=== PATIENT | female | born 1955 | race Hispanic/Latino ===

== ENCOUNTER 2021-05-26 10:47 | Emergency (ER) | payer SELFPAY ==
[2021-05-26] MEDS ORDERED: fentaNYL 100 MCG/2 ML INJ IV ONE (11:29)
[2021-05-26] MEDS ORDERED: ONDANSETRON 4 MG/2 ML INJ IV ONE (11:29)
[2021-05-26] MEDS ORDERED: KETOROLAC 30 MG/1 ML INJ IV ONE (11:29)
[2021-05-26] MEDS ORDERED: SODIUM CHLORIDE 0.9% 1000 ML 1,000 ML IV ONE (11:29)
--- NOTE | 2021-05-26 11:31 | Emergency Department Report ---
ED Abdominal Pain HPI - General Chief Complaint: Abdominal Pain Stated Complaint: ABDOMINAL PAIN Time Seen by Provider: 05/26/21 11:24 Source: patient Mode of arrival: Wheelchair Limitations: No Limitations - History of Present Illness Initial Comments: Patient presents with a 3 to 4-day history of worsening abdominal pain. She is describing a sharp and cramping pain in the epigastric area. The pain does not radiate or migrate. It is progressively worsened. The pain is much worse today. The pain has been constant. She has had pain like this before when she has had problems with her gallbladder. She had problems with her gallbladder years ago, but never had surgery to address the problem. Patient denies any history of trauma. She has no fevers or chills. There is no hematemesis or coffee-ground emesis. She reports nausea without vomiting. There is no history of recent travel or trauma. She is taken [id number] medication without symptomatic improvement. - Related Data Previous Rx's Medication Instructions Recorded Last Taken Type HYDROcodone/APAP 5-325 [[place] 1 - 2 each PO Q6HR PRN #20 tablet 01/10/13 Unknown Rx 5/325 mg] Sulfamethoxazole/Trimethoprim 1 each PO BID #14 tablet 01/10/13 Unknown Rx [Bactrim DS] lisinopriL [Zestril TAB] 20 mg PO QDAY #30 tablet 01/10/13 Unknown Rx metFORMIN [Glucophage] 500 mg PO BID #60 tablet 01/10/13 Unknown Rx Ibuprofen [Motrin] 800 mg PO Q8HR PRN #20 tablet 05/26/21 Unknown Rx Metoclopramide [Reglan] 10 mg PO ACHS PRN #30 tablet 05/26/21 Unknown Rx Allergies Allergy/AdvReac Type Severity Reaction Status Date / Time Penicillins Allergy Unknown Verified 01/09/13 16:25 ED Review of Systems ROS: Stated complaint: ABDOMINAL PAIN Other details as noted in HPI Comment: All other systems reviewed and negative Constitutional: denies: fever Eyes: denies: vision change ENT: denies: throat pain Respiratory: denies: cough Cardiovascular: denies: chest pain Endocrine: denies: unexplained weight loss Gastrointestinal: as per HPI Genitourinary: denies: dysuria Musculoskeletal: denies: back pain Skin: denies: rash Neurological: denies: headache Hematological/Lymphatic: denies: easy bruising ED Past Medical Hx - Past Medical History Hx Hypertension: Yes (noncompliant) Hx Diabetes: Yes (noncompliant) Additional medical history: spontaneous pneumothorax. high cholesterol - Surgical History Additional Surgical History: lung surgery. tubal ligation. tonsillectomy - Family History Family history: hypertension - Social History Smoking Status: Current Every Day Smoker (We discussed tobacco cessation) Substance Use Type: Alcohol, Non Opiate Pain, Prescribed - Medications Home Medications: Home Medications Medication Instructions Recorded Confirmed Last Taken Type HYDROcodone/APAP 5-325 [[place] 1 - 2 each PO Q6HR PRN #20 tablet 01/10/13 Unknown Rx 5/325 mg] Sulfamethoxazole/Trimethoprim 1 each PO BID #14 tablet 01/10/13 Unknown Rx [Bactrim DS] lisinopriL [Zestril TAB] 20 mg PO QDAY #30 tablet 01/10/13 Unknown Rx metFORMIN [Glucophage] 500 mg PO BID #60 tablet 01/10/13 Unknown Rx Ibuprofen [Motrin] 800 mg PO Q8HR PRN #20 tablet 05/26/21 Unknown Rx Metoclopramide [Reglan] 10 mg PO ACHS PRN #30 tablet 05/26/21 Unknown Rx ED Physical Exam - General Limitations: No Limitations, Other (Pulse ox noted and normal) General appearance: alert, in no apparent distress - Head Head exam: Present: atraumatic, normocephalic - Eye Eye exam: Present: normal appearance, PERRL, EOMI. Absent: scleral icterus - ENT ENT exam: Present: normal orophraynx, normal external ear exam - Neck Neck exam: Present: normal inspection. Absent: meningismus - Respiratory Respiratory exam: Present: normal lung sounds bilaterally. Absent: respiratory distress - Cardiovascular Cardiovascular Exam: Present: regular rate, normal rhythm - GI/Abdominal GI/Abdominal exam: Present: soft, tenderness (Epigastric). Absent: guarding, rebound - Extremities Exam Extremities exam: Present: normal capillary refill. Absent: calf tenderness - Back Exam Back exam: Absent: CVA tenderness (R), CVA tenderness (L) - Neurological Exam Neurological exam: Present: alert, oriented X3, CN II-XII intact, normal gait. Absent: motor sensory deficit - Psychiatric Psychiatric exam: Present: normal affect, normal mood - Skin Skin exam: Present: warm, dry ED Course Vital Signs 05/26/21 05/26/21 05/26/21 10:59 11:37 11:38 Temperature 97.9 F Pulse Rate 104 H Respiratory 16 18 18 Rate Blood Pressure 174/113 [Left] O2 Sat by Pulse 99 97 Oximetry 05/26/21 11:46 Temperature Pulse Rate 102 H Respiratory 26 H Rate Blood Pressure [Left] O2 Sat by Pulse Oximetry - Reevaluation(s) Reevaluation #1: 05/26/21 11:31 IV labs ordered. Old records reviewed. Reevaluation #2: 05/26/21 12:43 Labs were reviewed. Pain is improved. There is no right upper quadrant tenderness or rebound. Patient was discharged. ED Medical Decision Making - Lab Data Result diagrams: 05/26/21 11:41 05/26/21 11:41 Rhythm strip: Sinus tachycardia without ectopy. Monitor observe 10 seconds. - Medical Decision Making Patient presents with upper abdominal pain and known gallbladder disease. She does not have evidence of acute cholecystitis. She does not have intractable pain. She does not appear to be septic or toxic. There is no evidence of transaminitis. Bilirubin is normal. I do not believe this represents any obstructive pattern. Patient was referred to surgery for outpatient follow-up. She was instructed to have a bland diet and avoid fatty foods. She can return for problems or concerns. Certainly, there is no pulsatile mass to suggest AAA. She has no distention or tympany to suggest bowel obstruction. Critical Care Time: No Critical care attestation.: If time is entered above; I have spent that time in minutes in the direct care of this critically ill patient, excluding procedure time. ED Disposition Clinical Impression: Acute epigastric pain Disposition: HOME / SELF CARE / HOMELESS Is pt being admited?: No Condition: Stable Instructions: Abdominal Pain (ED), Abdominal Pain, Adult, Mxyq-no-[id number] Additional Instructions: Have a bland diet. Avoid fatty foods and greasy foods. Drink plenty of water. See the surgeon and discuss having cholecystectomy. Prescriptions: Ibuprofen [Motrin] 800 mg PO Q8HR PRN #20 tablet PRN Reason: Pain , Severe (7-10) Metoclopramide [Reglan] 10 mg PO ACHS PRN #30 tablet PRN Reason: Nausea Referrals: SWATHI ALBERT MD [Primary Care Provider] - 3-5 Days AYDEE PACK MD [Staff Physician] - 3-5 Days SANDRA POE MD [Staff Physician] - 3-5 Days
[2021-05-26 12:16] LABS: Basophils # (Auto) 0.1 K/mm3 (0.0-0.1); Basophils % (Auto) 0.7 % (0.0-1.8); Eosinophils # (Auto) 0.2 K/mm3 (0.0-0.4); Eosinophils % (Auto) 1.7 % (0.0-4.3); Hematocrit 45.1 % (30.3-42.9); Hemoglobin 14.8 gm/dl (10.1-14.3); Lymphocytes # (Auto) 1.8 K/mm3 (1.2-5.4); Lymphocytes % (Auto) 18.6 % (13.4-35.0); Mean Corpuscular HGB Conc 33 % (30-34); Mean Corpuscular Volume 89 fl (79-97); Monocytes # (Auto) 0.6 K/mm3 (0.0-0.8); Monocytes % (Auto) 5.8 % (0.0-7.3); Platelet Count 320 K/mm3 (140-440); Red Blood Count 5.04 M/mm3 (3.65-5.03); Red Cell Distribution Width 13.5 % (13.2-15.2)
[2021-05-26 12:29] LABS: Alanine Aminotransferase 8 units/L (7-56); Albumin 4.7 g/dL (3.9-5); BUN/Creatinine Ratio 25; Blood Urea Nitrogen 30 mg/dL (7-17); Calcium 9.6 mg/dL (8.4-10.2); Hemolysis Index 26
[2021-05-26 12:30] LABS: Bilirubin,Direct < 0.2 mg/dL (0-0.2)
[2021-05-26] MEDS ORDERED: MORPHINE 4 MG/1 ML INJ IV ONE (12:49)
[2021-05-26 13:52] VITALS: BP 194/94
== END 2021-05-26 13:52 | disposition home or self-care (01) ==
LOC: ED 10:47
DX: R10.13 Epigastric pain (principal); Z88.0 Allergy status to penicillin; F17.200 Nicotine dependence, unspecified, uncomplicated; F10.20 Alcohol dependence, uncomplicated; I10 Essential (primary) hypertension; E11.9 Type 2 diabetes mellitus without complications
CPT/HCPCS: 36415; 80048; 80076; 83690; 85025; 96361; 96374; 96375; 99283; J1885; J2270; J2405; J3010; J7030; Q0162

== ENCOUNTER 2021-06-02 21:02 | Inpatient (IN) | payer MEDICARE ==
[2021-06-02] MEDS ORDERED: ONDANSETRON 4 MG/2 ML INJ IV ONE (22:50)
[2021-06-02] MEDS ORDERED: MORPHINE 4 MG/1 ML INJ IV ONE (22:50)
[2021-06-02] MEDS ORDERED: SODIUM CHLORIDE 0.9% 1000 ML 1,000 ML IV ONE (22:50)
--- NOTE | 2021-06-02 22:56 | Emergency Department Report ---
ED Abdominal Pain HPI - General Chief Complaint: Abdominal Pain Stated Complaint: GALLBLADDER ISSUES Time Seen by Provider: 06/02/21 22:41 Source: patient, family Mode of arrival: Wheelchair Limitations: No Limitations - History of Present Illness Initial Comments: Patient is 65-year-old female with history of hypertension and diabetes. Patient presented to the ER complaining of right upper quadrant abdominal pain and epigastric pain for the last 7 days. Patient was seen here on May 26 and was told that she has issues with her gallbladder and advised to follow-up with primary care physician for further management and refill. Patient stated that her symptoms getting worse since then. She is complaining of chills but no fever. She also reported nausea and vomiting. Patient denied any chest pain or shortness of breath. MD Complaint: abdominal pain -: days(s) Location: RUQ, epigastric Radiation: none Migration to: no migration Severity scale (0 -10): 3 Associated Symptoms: nausea, vomiting. denies: diarrhea, chills, constipation, dysuria, hematemesis - Related Data Previous Rx's Medication Instructions Recorded Last Taken Type HYDROcodone/APAP 5-325 [[place] 1 - 2 each PO Q6HR PRN #20 tablet 01/10/13 Unknown Rx 5/325 mg] Sulfamethoxazole/Trimethoprim 1 each PO BID #14 tablet 01/10/13 Unknown Rx [Bactrim DS] lisinopriL [Zestril TAB] 20 mg PO QDAY #30 tablet 01/10/13 Unknown Rx metFORMIN [Glucophage] 500 mg PO BID #60 tablet 01/10/13 Unknown Rx Ibuprofen [Motrin] 800 mg PO Q8HR PRN #20 tablet 05/26/21 Unknown Rx Metoclopramide [Reglan] 10 mg PO ACHS PRN #30 tablet 05/26/21 Unknown Rx Allergies Allergy/AdvReac Type Severity Reaction Status Date / Time Penicillins Allergy Unknown Verified 01/09/13 16:25 ED Review of Systems ROS: Stated complaint: GALLBLADDER ISSUES Other details as noted in HPI Comment: All other systems reviewed and negative Constitutional: chills. denies: fever Respiratory: denies: cough, shortness of breath, SOB with exertion, SOB at rest Cardiovascular: denies: chest pain, palpitations Gastrointestinal: abdominal pain, nausea, vomiting. denies: diarrhea, constipation, hematemesis, melena, hematochezia ED Past Medical Hx - Past Medical History Previous Medical History?: Yes Hx Hypertension: Yes (noncompliant) Hx Diabetes: Yes (noncompliant) Additional medical history: spontaneous pneumothorax. high cholesterol - Surgical History Past Surgical History?: Yes Additional Surgical History: lung surgery. tubal ligation. tonsillectomy. Left Knee Replacement - Social History Smoking Status: Current Every Day Smoker (We discussed tobacco cessation) Substance Use Type: Alcohol, Non Opiate Pain, Prescribed - Medications Home Medications: Home Medications Medication Instructions Recorded Confirmed Last Taken Type HYDROcodone/APAP 5-325 [[place] 1 - 2 each PO Q6HR PRN #20 tablet 01/10/13 Unknown Rx 5/325 mg] Sulfamethoxazole/Trimethoprim 1 each PO BID #14 tablet 01/10/13 Unknown Rx [Bactrim DS] lisinopriL [Zestril TAB] 20 mg PO QDAY #30 tablet 01/10/13 Unknown Rx metFORMIN [Glucophage] 500 mg PO BID #60 tablet 01/10/13 Unknown Rx Ibuprofen [Motrin] 800 mg PO Q8HR PRN #20 tablet 05/26/21 Unknown Rx Metoclopramide [Reglan] 10 mg PO ACHS PRN #30 tablet 05/26/21 Unknown Rx ED Physical Exam - General Limitations: No Limitations General appearance: alert, in no apparent distress - Head Head exam: Present: atraumatic, normocephalic, normal inspection - Eye Eye exam: Present: normal appearance - ENT ENT exam: Present: mucous membranes dry - Neck Neck exam: Present: normal inspection, full ROM. Absent: tenderness, meningismus - Respiratory Respiratory exam: Present: normal lung sounds bilaterally - Cardiovascular Cardiovascular Exam: Present: regular rate, normal rhythm, normal heart sounds - GI/Abdominal GI/Abdominal exam: Present: soft, tenderness, normal bowel sounds. Absent: distended, guarding, rebound, rigid, organomegaly, mass, bruit, pulsatile mass, hernia - Extremities Exam Extremities exam: Present: normal inspection, full ROM, normal capillary refill. Absent: tenderness - Back Exam Back exam: Present: normal inspection, full ROM. Absent: CVA tenderness (R), CVA tenderness (L) - Neurological Exam Neurological exam: Present: alert, oriented X3, CN II-XII intact, normal gait, reflexes normal. Absent: motor sensory deficit - Psychiatric Psychiatric exam: Present: normal mood - Skin Skin exam: Present: warm, intact, normal color ED Course Vital Signs 06/02/21 06/02/21 06/03/21 21:13 23:31 00:42 Temperature 97.9 F Pulse Rate 90 103 H Respiratory 18 20 22 Rate Blood Pressure 127/69 180/80 [Right] O2 Sat by Pulse 97 98 Oximetry 06/03/21 02:01 Temperature Pulse Rate Respiratory Rate Blood Pressure [Right] O2 Sat by Pulse 98 Oximetry ED Medical Decision Making - Lab Data Result diagrams: 06/02/21 22:59 06/02/21 22:59 - Radiology Data Radiology results: report reviewed - Medical Decision Making Patient is 65-year-old female with history of hypertension and diabetes. Patient presented to the ER complaining of right upper quadrant abdominal pain and epigastric pain for the last 7 days. Patient was seen here on May 26 and was told that she has issues with her gallbladder and advised to follow-up with primary care physician for further management and refill. Patient stated that her symptoms getting worse since then. She is complaining of chills but no fever. She also reported nausea and vomiting. Patient denied any chest pain or shortness of breath. Patient received normal saline, morphine, Zofran and Protonix. Labs reviewed and showed a leukocytosis of 35,000. Creatinine is 2.[address] abdomen and pelvis showed evidence of gastric outlet obstruction most likely secondary to duodenitis. I discussed the patient with Dr. Kike Jimenez, manager post on-call and he advised to put an NG tube and he will see the patient in the morning for further management. I discussed the patient with Dr. Ramsey, he agreed to admit the patient to medical service for further management. Critical Care Time: Yes Critical care time in (mins) excluding proc time.: 35 Critical care attestation.: If time is entered above; I have spent that time in minutes in the direct care of this critically ill patient, excluding procedure time. ED Disposition Clinical Impression: Acute abdominal pain, Gastric outlet obstruction, Acute nausea with nonbilious vomiting, Duodenitis Disposition: ADMITTED INPATIENT Is pt being admited?: Yes Condition: Stable Instructions: Abdominal Pain (ED)
[2021-06-02 23:41] LABS: Mean Corpuscular HGB Conc 37 % (30-34); Mean Corpuscular Volume 86 fl (79-97); Platelet Count 446 K/mm3 (140-440)
[2021-06-02 23:44] LABS: Hematocrit 31.9 % (30.3-42.9); Hemoglobin 11.7 gm/dl (10.1-14.3)
[2021-06-02 23:45] LABS: Alanine Aminotransferase 7 units/L (7-56); Albumin 4.2 g/dL (3.9-5); BUN/Creatinine Ratio 28; Blood Urea Nitrogen 69 mg/dL (7-17); Calcium 9.3 mg/dL (8.4-10.2); Hemolysis Index 1
[2021-06-03 00:33] LABS: Bilirubin,Direct < 0.2 mg/dL (0-0.2)
[2021-06-03] MEDS: metroNIDAZOLE/NS 500 MG/100 ML 500 MG/100 ML BAG IV ONE ×2 (00:39→21:55)
[2021-06-03] MEDS ORDERED: SODIUM CHLORIDE 0.9% 1000 ML 1,000 ML IV ONE ×2 (01:08→01:14)
[2021-06-03 01:47] LABS: Basophils % (Manual) 0 % (0.0-1.8); Eosinophils % (Manual) 0 % (0.0-4.3); Platelet Estimate Consistent w Auto; RBC Morphology Normal; Total Cells Counted 100
--- NOTE | 2021-06-03 02:01 | Cat Scan Report ---
CT ABDOMEN AND PELVIS WITHOUT CONTRAST INDICATION / CLINICAL INFORMATION: Patient complains of abdominal pain. TECHNIQUE: Axial CT images were obtained through the abdomen and pelvis without IV contrast. All CT scans at this location are performed using CT dose reduction for ALARA by means of automated exposure control. COMPARISON: CT abdomen and pelvis 08/10/2010 FINDINGS: LOWER CHEST: Bronchial thickening suggested within left lower lobe involving subsegmental bronchi. Mi nimally thickened septal lines nonspecific in appearance. Small dependent pleural effusions bilateral ly. Left-sided effusion slightly larger than right. LIVER: No significant abnormality. GALLBLADDER: Numerous cholesterol gallstones. No wall thickening. BILE DUCTS: No significant abnormality. SPLEEN: No significant abnormality. PANCREAS: No significant abnormality. ADRENALS: No significant abnormality. RIGHT KIDNEY / URETER: 2.1 cm cyst posterior medial right kidney slightly larger than the comparison study. LEFT KIDNEY / URETER: No significant abnormality. STOMACH / DUODENUM / SMALL BOWEL: The stomach is grossly distended and contains a large amount of flu id and/or food material. The distal gastric antrum and pylorus are thickened with additional thickeni ng of the first and second portion of the duodenum. Mild fat stranding additionally is noted on the s erosal surfaces of the second portion of the duodenum. Some areas of irregular wall thickening additi onally present. COLON: No significant abnormality. APPENDIX: No significant abnormality. PERITONEUM: No free air or free fluid are present within the abdomen or pelvis. LYMPH NODES: Borderline to minimally enlarged ramos hepatic lymph nodes are present with additional s mall lymph nodes adjacent to lateral margin second portion of the duodenum. AORTA / ARTERIES: Moderate atherosclerotic calcification without acute abnormality. IVC / VEINS: No significant abnormality. URINARY BLADDER: No significant abnormality. REPRODUCTIVE ORGANS: No significant abnormality. ADDITIONAL ABDOMINAL/PELVIC FINDINGS: None. SKELETAL SYSTEM: No significant abnormality. IMPRESSION: 1. The appearance of the stomach and duodenum suggests gastric outlet obstruction possibly from duode nal ulcer or other acute inflammatory process of the duodenum. No perforation demonstrated. Given the irregularity of the duodenal wall, neoplasm not entirely excluded. 2. Cholelithiasis without imaging features to support cholecystitis. 3. Small dependent pleural effusions larger within the left chest. 4. Areas of bronchial wall thickening in thickened septal lines left lower lobe nonspecific could ref lect component of bronchitis or sequela of aspiration. Signer Name: Liu Urban II, MD Signed: 06/03/2021 1:56 AM Workstation Name: [id number]
[2021-06-03] MEDS ORDERED: PANTOPRAZOLE 40 MG INJ IV ONE (02:28)
[2021-06-03] MEDS ORDERED: ONDANSETRON 4 MG/2 ML INJ IV PRN (04:23)
[2021-06-03] MEDS ORDERED: DEXTROSE 50% IN WATER (25GM) 50 ML SYRINGE IV PRN (04:23)
[2021-06-03] MEDS ORDERED: METOCLOPRAMIDE 10 MG TAB PO PRN ×2 (04:27→08:00)
--- NOTE | 2021-06-03 04:33 | History and Physical Report ---
History of Present Illness Date of examination: 06/03/21 Date of admission: 06/03/21 Chief complaint: Abdominal pain History of present illness: 65-year-old female with history of hypertension and diabetes was brought to the ER complaining of right upper quadrant abdominal pain and epigastric pain for the last 7 days. Patient was seen in the emergency room on May 26 and was told that she has issues with her gallbladder and advised to follow-up with primary care physician for further management and refill. Patient stated that her symptoms getting worse since then. She is complaining of chills but no fever. She also reported nausea and vomiting. Patient denied any chest pain or shortness of breath. Labs reviewed and showed a leukocytosis of 35,000. Creatinine is 2.[address] abdomen and pelvis showed evidence of gastric outlet obstruction most likely secondary to duodenitis. case discussed with Dr. Kike Jimenez, escapement matcher on-call and he advised to put an NG tube and he will see the patient in the morning for further management. We also consult surgery for evaluation Past History Past Medical History: diabetes, hypertension, hyperlipidemia, other (Spontaneous pneumothorax) Past Surgical History: Other (lung surgery. tubal ligation. tonsillectomy. Left Knee Replacement) Social history: smoking, alcohol abuse Medications and Allergies Allergies Allergy/AdvReac Type Severity Reaction Status Date / Time Penicillins Allergy Unknown Verified 01/09/13 16:25 Home Medications Medication Instructions Recorded Confirmed Last Taken Type HYDROcodone/APAP 5-325 [[place] 1 - 2 each PO Q6HR PRN #20 tablet 01/10/13 Unknown Rx 5/325 mg] Sulfamethoxazole/Trimethoprim 1 each PO BID #14 tablet 01/10/13 Unknown Rx [Bactrim DS] lisinopriL [Zestril TAB] 20 mg PO QDAY #30 tablet 01/10/13 Unknown Rx metFORMIN [Glucophage] 500 mg PO BID #60 tablet 01/10/13 Unknown Rx Ibuprofen [Motrin] 800 mg PO Q8HR PRN #20 tablet 05/26/21 Unknown Rx Metoclopramide [Reglan] 10 mg PO ACHS PRN #30 tablet 05/26/21 Unknown Rx Review of Systems Gastrointestinal: abdominal pain, nausea, vomiting Exam - Constitutional Vitals: Temp Pulse Resp BP Pulse Ox 97.9 F 103 H 22 180/80 98 06/02/21 21:13 06/03/21 00:42 06/03/21 00:42 06/03/21 00:42 06/03/21 02:01 General appearance: Present: mild distress - EENT Eyes: Present: PERRL ENT: hearing intact, clear oral mucosa - Neck Neck: Present: supple, normal ROM - Respiratory Respiratory effort: normal Respiratory: bilateral: CTA - Cardiovascular Heart Sounds: Present: S1 & S2. Absent: rub, click - Extremities Extremities: pulses symmetrical, No edema Peripheral Pulses: within normal limits - Abdominal General gastrointestinal: Present: soft, non-tender, non-distended, normal bowel sounds Female genitourinary: Present: normal - Integumentary Integumentary: Present: clear, warm, dry - Musculoskeletal Musculoskeletal: gait normal, strength equal bilaterally - Psychiatric Psychiatric: appropriate mood/affect, intact judgment & insight - Neurologic Neurologic: CNII-XII intact, moves all extremities Results - Labs CBC & Chem 7: 06/02/21 22:59 06/02/21 22:59 Labs: Laboratory Last Values WBC 35.9 K/mm3 (4.5-11.0) H 06/02/21 22:59 RBC 3.70 M/mm3 (3.65-5.03) 06/02/21 22:59 Hgb 11.7 gm/dl (10.1-14.3) 06/02/21 22:59 Hct 31.9 % (30.3-42.9) 06/02/21 22:59 MCV 86 fl (79-97) 06/02/21 22:59 MCH 32 pg (28-32) 06/02/21 22:59 MCHC 37 % (30-34) H 06/02/21 22:59 RDW 13.0 % (13.2-15.2) L 06/02/21 22:59 Plt Count 446 K/mm3 (140-440) H 06/02/21 22:59 Add Manual Diff Complete 06/02/21 22:59 Total Counted 100 06/02/21 22:59 Seg Neuts % (Manual) 92.0 % (40.0-70.0) H 06/02/21 22:59 Band Neutrophils % 0 % 06/02/21 22:59 Lymphocytes % (Manual) 6.0 % (13.4-35.0) L 06/02/21 22:59 Reactive Lymphs % (Man) 0 % 06/02/21 22:59 Monocytes % (Manual) 2.0 % (0.0-7.3) 06/02/21 22:59 Eosinophils % (Manual) 0 % (0.0-4.3) 06/02/21 22:59 Basophils % (Manual) 0 % (0.0-1.8) 06/02/21 22:59 Metamyelocytes % 0 % 06/02/21 22:59 Myelocytes % 0 % 06/02/21 22:59 Promyelocytes % 0 % 06/02/21 22:59 Blast Cells % 0 % 06/02/21 22:59 Nucleated RBC % Not Reportable 06/02/21 22:59 Seg Neutrophils # Man 33.0 K/mm3 (1.8-7.7) H 06/02/21 22:59 Band Neutrophils # 0.0 K/mm3 06/02/21 22:59 Lymphocytes # (Manual) 2.2 K/mm3 (1.2-5.4) 06/02/21 22:59 Abs React Lymphs (Man) 0.0 K/mm3 06/02/21 22:59 Monocytes # (Manual) 0.7 K/mm3 (0.0-0.8) 06/02/21 22:59 Eosinophils # (Manual) 0.0 K/mm3 (0.0-0.4) 06/02/21 22:59 Basophils # (Manual) 0.0 K/mm3 (0.0-0.1) 06/02/21 22:59 Metamyelocytes # 0.0 K/mm3 06/02/21 22:59 Myelocytes # 0.0 K/mm3 06/02/21 22:59 Promyelocytes # 0.0 K/mm3 06/02/21 22:59 Blast Cells # 0.0 K/mm3 06/02/21 22:59 WBC Morphology Not Reportable 06/02/21 22:59 Hypersegmented Neuts Not Reportable 06/02/21 22:59 Hyposegmented Neuts Not Reportable 06/02/21 22:59 Hypogranular Neuts Not Reportable 06/02/21 22:59 Smudge Cells Not Reportable 06/02/21 22:59 Toxic Granulation Not Reportable 06/02/21 22:59 Toxic Vacuolation Not Reportable 06/02/21 22:59 Dohle Bodies Not Reportable 06/02/21 22:59 Pelger-Huet Anomaly Not Reportable 06/02/21 22:59 Chelita Rods Not Reportable 06/02/21 22:59 Platelet Estimate Consistent w auto 06/02/21 22:59 Clumped Platelets Not Reportable 06/02/21 22:59 Plt Clumps, EDTA Not Reportable 06/02/21 22:59 Large Platelets Not Reportable 06/02/21 22:59 Giant Platelets Not Reportable 06/02/21 22:59 Platelet Satelliting Not Reportable 06/02/21 22:59 Plt Morphology Comment Not Reportable 06/02/21 22:59 RBC Morphology Normal 06/02/21 22:59 Dimorphic RBCs Not Reportable 06/02/21 22:59 Polychromasia Not Reportable 06/02/21 22:59 Hypochromasia Not Reportable 06/02/21 22:59 Poikilocytosis Not Reportable 06/02/21 22:59 Anisocytosis Not Reportable 06/02/21 22:59 Microcytosis Not Reportable 06/02/21 22:59 Macrocytosis Not Reportable 06/02/21 22:59 Spherocytes Not Reportable 06/02/21 22:59 Pappenheimer Bodies Not Reportable 06/02/21 22:59 Sickle Cells Not Reportable 06/02/21 22:59 Target Cells Not Reportable 06/02/21 22:59 Tear Drop Cells Not Reportable 06/02/21 22:59 Ovalocytes Not Reportable 06/02/21 22:59 Helmet Cells Not Reportable 06/02/21 22:59 Chavarria-[place] Bodies Not Reportable 06/02/21 22:59 [place] Rings Not Reportable 06/02/21 22:59 Chad Cells Not Reportable 06/02/21 22:59 Bite Cells Not Reportable 06/02/21 22:59 Crenated Cell Not Reportable 06/02/21 22:59 Elliptocytes Not Reportable 06/02/21 22:59 Acanthocytes (Spur) Not Reportable 06/02/21 22:59 Rouleaux Not Reportable 06/02/21 22:59 Hemoglobin C Crystals Not Reportable 06/02/21 22:59 Schistocytes Not Reportable 06/02/21 22:59 Malaria parasites Not Reportable 06/02/21 22:59 Rene Bodies Not Reportable 06/02/21 22:59 Hem Pathologist Commnt No 06/02/21 22:59 Sodium 131 mmol/L (137-145) L 06/02/21 22:59 Potassium 3.7 mmol/L (3.6-5.0) 06/02/21 22:59 Chloride 79.8 mmol/L (98-107) L 06/02/21 22:59 Carbon Dioxide 35 mmol/L (22-30) H 06/02/21 22:59 Anion Gap 20 mmol/L 06/02/21 22:59 BUN 69 mg/dL (7-17) H 06/02/21 22:59 Creatinine 2.5 mg/dL (0.6-1.2) H 06/02/21 22:59 Estimated GFR 19 ml/min 06/02/21 22:59 BUN/Creatinine Ratio 28 % 06/02/21 22:59 Glucose 233 mg/dL (65-100) H 06/02/21 22:59 Calcium 9.3 mg/dL (8.4-10.2) 06/02/21 22:59 Total Bilirubin 0.30 mg/dL (0.1-1.2) 06/02/21 22:59 Direct Bilirubin < 0.2 mg/dL (0-0.2) 06/02/21 22:59 Indirect Bilirubin 0.1 mg/dL 06/02/21 22:59 AST 12 units/L (5-40) 06/02/21 22:59 ALT 7 units/L (7-56) 06/02/21 22:59 Alkaline Phosphatase 95 units/L (35-129) 06/02/21 22:59 Total Protein 6.6 g/dL (6.3-8.2) 06/02/21 22:59 Albumin 4.2 g/dL (3.9-5) 06/02/21 22:59 Albumin/Globulin Ratio 1.8 % 06/02/21 22:59 Microbiology: Microbiology 06/03/21 00:16 Peripheral/Venous Blood Culture - Preliminary Culture in Progress 06/03/21 00:16 Peripheral/Venous Blood Culture - Preliminary Culture in Progress - Imaging and Cardiology CT scan - abdomen: report reviewed Assessment and Plan VTE prophylaxis?: Chemical Plan of care discussed with patient/family: Yes - Patient Problems (1) Gastric outlet obstruction Current Visit: Yes Status: Acute Plan to address problem: Admit the patient to the [facility]. NPO. NG tube suction. Normal saline at the rate of 100 cc/h. Pepcid 20 mg IV every 12 hours. Will consult GI as well as surgery for evaluation (2) Leukocytosis Current Visit: Yes Status: Acute Plan to address problem: Levaquin 750 mg IV daily. We do the blood culture urine culture. Recheck CBC in the morning (3) Acute abdominal pain Current Visit: Yes Status: Acute Plan to address problem: NPO. NG tube suction. Normal saline at the rate of 100 cc/h. Pepcid 20 mg IV every 12 hours. Will consult GI as well as surgery for evaluation (4) OTILIA (acute kidney injury) Current Visit: Yes Status: Acute Plan to address problem: Avoid nephrotoxic drug. Renally dose medication. Normal saline at the rate of 100 cc/h. Recheck BMP in the morning (5) Hypertension Current Visit: Yes Status: Acute Plan to address problem: Hydralazine 10 mg IV every 6 hours as needed. We continue the home medication (6) Acute nausea with nonbilious vomiting Current Visit: Yes Status: Acute Plan to address problem: NPO. NG tube suction. Normal saline at the rate of 100 cc/h. Pepcid 20 mg IV every 12 hours. Zofran 4 mg IV every 8 hours as needed (7) Diabetes mellitus Current Visit: No Status: Acute Plan to address problem: Humalog sliding scale moderate dose coverage Accu-Chek every 6 hours. Diabetic education (8) DVT prophylaxis Current Visit: Yes Status: Acute Plan to address problem: Heparin 5000 units subcu every 8 hours for DVT prophylaxis. Pepcid 20 mg IV every 12 hours for GI prophylaxis. Patient is a full code
[2021-06-03] MEDS ORDERED: DEXTROSE 10% *Hypoglycemia IV PRN (04:53)
[2021-06-03] MEDS ORDERED: ALBUTEROL 2.5 MG/3 ML NEBU IH PRN (05:00)
[2021-06-03] MEDS ORDERED: ACETAMINOPHEN 325 MG TAB PO PRN (05:00)
[2021-06-03] MEDS ORDERED: HYDROmorphone 1 MG/1 ML INJ IV PRN (05:00)
[2021-06-03] MEDS: SODIUM CHLORIDE 0.9% 1000 ML 1,000 ML IV SCH ×2 (06:09→20:18)
[2021-06-03] MEDS: MORPHINE 2 MG/1 ML INJ IV PRN ×2 (06:45→12:35)
[2021-06-03] MEDS: INSULIN LISPRO 100 UNIT/ML SUB-Q SCH ×3 (07:01→17:09)
[2021-06-03] MEDS: IPRATROPIUM/ALBUTEROL SULFATE 3 ML AMPUL.NEB IH SCH (08:17)
--- NOTE | 2021-06-03 08:19 | Progress Note ---
Assessment and Plan Assessment and plan: History of present illness: 65-year-old female with history of hypertension and diabetes was brought to the ER complaining of right upper quadrant abdominal pain and epigastric pain for the last 7 days. Patient was seen in the emergency room on May 26 and was told that she has issues with her gallbladder and advised to follow-up with primary care physician for further management and refill. Patient stated that her symptoms getting worse since then. She is complaining of chills but no fever. She also reported nausea and vomiting. Patient denied any chest pain or wilda rtness of breath. Patient admitted for gastric outlet obstruction due to duodenitis. Will go to med/surg floor. Hospital course: 06/03/2021: D/w surgery and GI. Plan for EGD tomorrow by GI. Continue NPO and NG set to LIS. D/c antibiotics. Assessment and Plan: # Gastric outlet obstruction Current Visit: Yes Status: Acute Plan to address problem: CT abdomen and pelvis showed evidence of gastric outlet obstruction most likely secondary to duodenitis. NPO. NG tube suction. Normal saline at the rate of 100 cc/h. Pepcid 20 mg IV every 12 hours. GI consultation General Surgery Consultation # SIRS POA Current Visit: Yes Status: Acute Plan to address problem: WBC: 35.9K. Likely reactive from duodenal inflammation d/c Levaquin 750 mg IV daily. Flagyl 500 IV q8hr. blood culture/urine culture ordered on admission Trend Fever/wbc curve # OTILIA (acute kidney injury) due to vasomotor nephropathy Current Visit: Yes Status: Acute Plan to address problem: Likely in the setting of dehydration Admission Cr: 2.5, Baseline 1.2 based on prior admission this year. IVF at 100 cc/hr Avoid nephrotoxic agents/Renally dose medication. Follow up repeat BMP, if renal fx worsening will consult nephrology # Hypertension Current Visit: Yes Status: Acute Plan to address problem: Hydralazine 10 mg IV every 6 hours as needed. We continue the home medication # Acute nausea with nonbilious vomiting Current Visit: Yes Status: Acute Plan to address problem: NPO. NG tube suction. Normal saline at the rate of 100 cc/h. Pepcid 20 mg IV every 12 hours. Zofran 4 mg IV every 8 hours as needed # Type 2 Diabetes with Hyperglycemia Current Visit: No Status: Acute Plan to address problem: Humalog sliding scale moderate dose coverage Accu-Chek every 6 hours. Can add long acting insulin once diet can be resumed Diabetic education #DVT prophylaxis Current Visit: Yes Status: Acute Plan to address problem: Heparin 5000 units subcu every 8 hours for DVT prophylaxis. Pepcid 20 mg IV every 12 hours for GI prophylaxis. Patient is a full code #Advance care planning Disease education conducted, care plan discussed, diagnoses discussed, prognosis discussed, patient is full code, patient acknowledges understanding and agree with care plan, +30 minutes. History Interval history: Resting on encounter. Patient states that she continues to have some mild abdominal pain. Patient was very drowsy on my encounter. She states that something similar had happened in the past for which she was rx PPI. She denied ever having an EGD or C-scope in her past. Care plan was explained in detailed to patient and she verbalized understanding. Hospitalist Physical - Physical exam Narrative exam: Physical Exam: VITAL SIGNS: Reviewed. GENERAL: The patient appears normally developed, Vital signs as documented. mild distress HEAD: No signs of head trauma. EYES: Pupils are equal. Extraocular motions intact. EARS: Hearing grossly intact. NOSE: NG in place. MOUTH: Oropharynx is normal. NECK: No adenopathy, no JVD. CHEST: Chest with clear breath sounds bilaterally. No wheezes, rales, or rhonchi. CARDIAC: Regular rate and rhythm. S1 and S2, without murmurs, gallops, or rubs. VASCULAR: No Edema. Peripheral pulses normal and equal in all extremities. ABDOMEN: Tender abdomen. No rebound or guarding, and no masses palpated. Bowel Sounds normal. MUSCULOSKELETAL: Good range of motion of all major joints. Extremities without clubbing, cyanosis or edema. NEUROLOGIC EXAM: Alert and oriented x 4. no focal sensory or strength deficits. PSYCHIATRIC: Mood normal. SKIN: detail exam as documented in skin assessment - Constitutional Vitals: Temp Pulse Resp BP Pulse Ox 98.0 F 103 H 17 121/64 98 06/03/21 05:52 06/03/21 00:42 06/03/21 06:45 06/03/21 05:52 06/03/21 02:01 General appearance: Present: mild distress Results - Labs CBC & Chem 7: 06/02/21 22:59 06/02/21 22:59 Labs: Laboratory Last Values WBC 35.9 K/mm3 (4.5-11.0) H 06/02/21 22:59 RBC 3.70 M/mm3 (3.65-5.03) 06/02/21 22:59 Hgb 11.7 gm/dl (10.1-14.3) 06/02/21 22:59 Hct 31.9 % (30.3-42.9) 06/02/21 22:59 MCV 86 fl (79-97) 06/02/21 22:59 MCH 32 pg (28-32) 06/02/21 22:59 MCHC 37 % (30-34) H 06/02/21 22:59 RDW 13.0 % (13.2-15.2) L 06/02/21 22:59 Plt Count 446 K/mm3 (140-440) H 06/02/21 22:59 Add Manual Diff Complete 06/02/21 22:59 Total Counted 100 06/02/21 22:59 Seg Neuts % (Manual) 92.0 % (40.0-70.0) H 06/02/21 22:59 Band Neutrophils % 0 % 06/02/21 22:59 Lymphocytes % (Manual) 6.0 % (13.4-35.0) L 06/02/21 22:59 Reactive Lymphs % (Man) 0 % 06/02/21 22:59 Monocytes % (Manual) 2.0 % (0.0-7.3) 06/02/21 22:59 Eosinophils % (Manual) 0 % (0.0-4.3) 06/02/21 22:59 Basophils % (Manual) 0 % (0.0-1.8) 06/02/21 22:59 Metamyelocytes % 0 % 06/02/21 22:59 Myelocytes % 0 % 06/02/21 22:59 Promyelocytes % 0 % 06/02/21 22:59 Blast Cells % 0 % 06/02/21 22:59 Nucleated RBC % Not Reportable 06/02/21 22:59 Seg Neutrophils # Man 33.0 K/mm3 (1.8-7.7) H 06/02/21 22:59 Band Neutrophils # 0.0 K/mm3 06/02/21 22:59 Lymphocytes # (Manual) 2.2 K/mm3 (1.2-5.4) 06/02/21 22:59 Abs React Lymphs (Man) 0.0 K/mm3 06/02/21 22:59 Monocytes # (Manual) 0.7 K/mm3 (0.0-0.8) 06/02/21 22:59 Eosinophils # (Manual) 0.0 K/mm3 (0.0-0.4) 06/02/21 22:59 Basophils # (Manual) 0.0 K/mm3 (0.0-0.1) 06/02/21 22:59 Metamyelocytes # 0.0 K/mm3 06/02/21 22:59 Myelocytes # 0.0 K/mm3 06/02/21 22:59 Promyelocytes # 0.0 K/mm3 06/02/21 22:59 Blast Cells # 0.0 K/mm3 06/02/21 22:59 WBC Morphology Not Reportable 06/02/21 22:59 Hypersegmented Neuts Not Reportable 06/02/21 22:59 Hyposegmented Neuts Not Reportable 06/02/21 22:59 Hypogranular Neuts Not Reportable 06/02/21 22:59 Smudge Cells Not Reportable 06/02/21 22:59 Toxic Granulation Not Reportable 06/02/21 22:59 Toxic Vacuolation Not Reportable 06/02/21 22:59 Dohle Bodies Not Reportable 06/02/21 22:59 Pelger-Huet Anomaly Not Reportable 06/02/21 22:59 Chelita Rods Not Reportable 06/02/21 22:59 Platelet Estimate Consistent w auto 06/02/21 22:59 Clumped Platelets Not Reportable 06/02/21 22:59 Plt Clumps, EDTA Not Reportable 06/02/21 22:59 Large Platelets Not Reportable 06/02/21 22:59 Giant Platelets Not Reportable 06/02/21 22:59 Platelet Satelliting Not Reportable 06/02/21 22:59 Plt Morphology Comment Not Reportable 06/02/21 22:59 RBC Morphology Normal 06/02/21 22:59 Dimorphic RBCs Not Reportable 06/02/21 22:59 Polychromasia Not Reportable 06/02/21 22:59 Hypochromasia Not Reportable 06/02/21 22:59 Poikilocytosis Not Reportable 06/02/21 22:59 Anisocytosis Not Reportable 06/02/21 22:59 Microcytosis Not Reportable 06/02/21 22:59 Macrocytosis Not Reportable 06/02/21 22:59 Spherocytes Not Reportable 06/02/21 22:59 Pappenheimer Bodies Not Reportable 06/02/21 22:59 Sickle Cells Not Reportable 06/02/21 22:59 Target Cells Not Reportable 06/02/21 22:59 Tear Drop Cells Not Reportable 06/02/21 22:59 Ovalocytes Not Reportable 06/02/21 22:59 Helmet Cells Not Reportable 06/02/21 22:59 Chavarria-[place] Bodies Not Reportable 06/02/21 22:59 [place] Rings Not Reportable 06/02/21 22:59 Chad Cells Not Reportable 06/02/21 22:59 Bite Cells Not Reportable 06/02/21 22:59 Crenated Cell Not Reportable 06/02/21 22:59 Elliptocytes Not Reportable 06/02/21 22:59 Acanthocytes (Spur) Not Reportable 06/02/21 22:59 Rouleaux Not Reportable 06/02/21 22:59 Hemoglobin C Crystals Not Reportable 06/02/21 22:59 Schistocytes Not Reportable 06/02/21 22:59 Malaria parasites Not Reportable 06/02/21 22:59 Rene Bodies Not Reportable 06/02/21 22:59 Hem Pathologist Commnt No 06/02/21 22:59 Sodium 131 mmol/L (137-145) L 06/02/21 22:59 Potassium 3.7 mmol/L (3.6-5.0) 06/02/21 22:59 Chloride 79.8 mmol/L (98-107) L 06/02/21 22:59 Carbon Dioxide 35 mmol/L (22-30) H 06/02/21 22:59 Anion Gap 20 mmol/L 06/02/21 22:59 BUN 69 mg/dL (7-17) H 06/02/21 22:59 Creatinine 2.5 mg/dL (0.6-1.2) H 06/02/21 22:59 Estimated GFR 19 ml/min 06/02/21 22:59 BUN/Creatinine Ratio 28 % 06/02/21 22:59 Glucose 233 mg/dL (65-100) H 06/02/21 22:59 POC Glucose 139 mg/dL (70-105) H 06/03/21 06:15 Calcium 9.3 mg/dL (8.4-10.2) 06/02/21 22:59 Total Bilirubin 0.30 mg/dL (0.1-1.2) 06/02/21 22:59 Direct Bilirubin < 0.2 mg/dL (0-0.2) 06/02/21 22:59 Indirect Bilirubin 0.1 mg/dL 06/02/21 22:59 AST 12 units/L (5-40) 06/02/21 22:59 ALT 7 units/L (7-56) 06/02/21 22:59 Alkaline Phosphatase 95 units/L (35-129) 06/02/21 22:59 Total Protein 6.6 g/dL (6.3-8.2) 06/02/21 22:59 Albumin 4.2 g/dL (3.9-5) 06/02/21 22:59 Albumin/Globulin Ratio 1.8 % 06/02/21 22:59 Microbiology: Microbiology 06/03/21 00:16 Peripheral/Venous Blood Culture - Preliminary Culture in Progress 06/03/21 00:16 Peripheral/Venous Blood Culture - Preliminary Culture in Progress Rogers/IV: Voiding Method Toilet Active Medications - Current Medications Current Medications: Generic Name Dose Route Start Last Admin Trade Name Freq PRN Reason Stop Dose Admin Acetaminophen 650 mg 06/03/21 05:00 Acetaminophen 325 Mg Tab PO Q4H PRN Pain MILD(1-3)/Fever >100.5/SUN Albuterol 2.5 mg 06/03/21 05:00 Albuterol 2.5 Mg/3 Ml Nebu IH Q3HRT PRN Shortness Of Breath Albuterol/Ipratropium 1 ampul 06/03/21 08:00 Ipratropium/Albuterol Sulfate 3 Ml Ampul.Neb IH Q6HRT JELLY Dextrose 0 ml 06/03/21 04:53 Dextrose 10% *Hypoglycemia IV PRN PRN Hypoglycemia Famotidine 10 mg 06/03/21 10:00 Famotidine 20 Mg/2 Ml Inj IV BID JELLY Heparin Sodium (Porcine) 5,000 unit 06/03/21 10:00 Heparin 5,000 Unit/1 Ml Vial SUB-Q Q12HR [facility] Hydromorphone HCl 0.5 mg 06/03/21 05:00 Hydromorphone 1 Mg/1 Ml Inj IV Q3H PRN Pain , Severe (7-10) Sodium Chloride 1,000 mls @ 100 mls/hr 06/03/21 05:00 06/03/21 06:09 Nacl 0.9% 1000 Ml IV 100 mls/hr DIRECT JELLY Administration Levofloxacin/Dextrose 750 mg in 150 mls @ 100 mls/hr 06/04/21 08:00 Levaquin 750mg/150ml IV Q48H [facility] Insulin Human Lispro 0 unit 06/03/21 06:00 06/03/21 07:01 Insulin Lispro 100 Unit/Ml SUB-Q Not Given Q6HR [facility] Protocol Lisinopril 20 mg 06/03/21 10:00 Lisinopril 20 Mg Tab PO QDAY JELLY Metoclopramide HCl 5 mg 06/03/21 08:00 Metoclopramide 10 Mg Tab PO ACHS PRN Nausea Morphine Sulfate 2 mg 06/03/21 04:23 06/03/21 06:45 Morphine 2 Mg/1 Ml Inj IV 2 mg Q4H PRN Administration Pain, Moderate (4-6) Ondansetron HCl 4 mg 06/03/21 04:23 Ondansetron 4 Mg/2 Ml Inj IV Q8H PRN Nausea And Vomiting Sodium Chloride 10 ml 06/03/21 10:00 Sodium Chloride 0.9% 10 Ml Flush Syringe IV BID JELLY Sodium Chloride 10 ml 06/03/21 04:23 Sodium Chloride 0.9% 10 Ml Flush Syringe IV PRN PRN LINE FLUSH
--- NOTE | 2021-06-03 08:27 | Gastroenterology Progress Note ---
Subjective Date of service: 06/03/21 Principal diagnosis: N/V Interval history: Patient is 65-year-old female with history of hypertension and diabetes. Patient presented to the ER complaining of right upper quadrant abdominal pain and epigastric pain for the last 7 days. Patient was seen here on May 26 and was told that she has issues with her gallbladder and advised to follow-up with primary care physician for further management and refill. Patient stated that her symptoms getting worse since then. She is complaining of chills but no fever. She also reported nausea and vomiting. Patient denied any chest pain or shortness of breath. Objective - Constitutional Vitals: Temp Pulse Resp BP Pulse Ox 98.0 F 102 H 18 121/64 97 06/03/21 05:52 06/03/21 08:17 06/03/21 08:17 06/03/21 05:52 06/03/21 08:22 - Labs CBC & Chem 7: 06/02/21 22:59 06/02/21 22:59 Labs: Laboratory Results - last 24 hr 06/02/21 06/02/21 06/03/21 22:59 22:59 06:15 WBC 35.9 H RBC 3.70 Hgb 11.7 Hct 31.9 MCV 86 MCH 32 MCHC 37 H RDW 13.0 L Plt Count 446 H Add Manual Diff Complete Total Counted 100 Seg Neuts % (Manual) 92.0 H Band Neutrophils % 0 Lymphocytes % (Manual) 6.0 L Reactive Lymphs % (Man) 0 Monocytes % (Manual) 2.0 Eosinophils % (Manual) 0 Basophils % (Manual) 0 Metamyelocytes % 0 Myelocytes % 0 Promyelocytes % 0 Blast Cells % 0 Nucleated RBC % Not Reportable Seg Neutrophils # Man 33.0 H Band Neutrophils # 0.0 Lymphocytes # (Manual) 2.2 Abs React Lymphs (Man) 0.0 Monocytes # (Manual) 0.7 Eosinophils # (Manual) 0.0 Basophils # (Manual) 0.0 Metamyelocytes # 0.0 Myelocytes # 0.0 Promyelocytes # 0.0 Blast Cells # 0.0 WBC Morphology Not Reportable Hypersegmented Neuts Not Reportable Hyposegmented Neuts Not Reportable Hypogranular Neuts Not Reportable Smudge Cells Not Reportable Toxic Granulation Not Reportable Toxic Vacuolation Not Reportable Dohle Bodies Not Reportable Pelger-Huet Anomaly Not Reportable Chelita Rods Not Reportable Platelet Estimate Consistent w auto Clumped Platelets Not Reportable Plt Clumps, EDTA Not Reportable Large Platelets Not Reportable Giant Platelets Not Reportable Platelet Satelliting Not Reportable Plt Morphology Comment Not Reportable RBC Morphology Normal Dimorphic RBCs Not Reportable Polychromasia Not Reportable Hypochromasia Not Reportable Poikilocytosis Not Reportable Anisocytosis Not Reportable Microcytosis Not Reportable Macrocytosis Not Reportable Spherocytes Not Reportable Pappenheimer Bodies Not Reportable Sickle Cells Not Reportable Target Cells Not Reportable Tear Drop Cells Not Reportable Ovalocytes Not Reportable Helmet Cells Not Reportable Chavarria-[place] Bodies Not Reportable [place] Rings Not Reportable Chad Cells Not Reportable Bite Cells Not Reportable Crenated Cell Not Reportable Elliptocytes Not Reportable Acanthocytes (Spur) Not Reportable Rouleaux Not Reportable Hemoglobin C Crystals Not Reportable Schistocytes Not Reportable Malaria parasites Not Reportable Rene Bodies Not Reportable Hem Pathologist Commnt No Sodium 131 L Potassium 3.7 Chloride 79.8 L Carbon Dioxide 35 H Anion Gap 20 BUN 69 H Creatinine 2.5 H Estimated GFR 19 BUN/Creatinine Ratio 28 Glucose 233 H POC Glucose 139 H Calcium 9.3 Total Bilirubin 0.30 Direct Bilirubin < 0.2 Indirect Bilirubin 0.1 AST 12 ALT 7 Alkaline Phosphatase 95 Total Protein 6.6 Albumin 4.2 Albumin/Globulin Ratio 1.8
[2021-06-03] MEDS ORDERED: metroNIDAZOLE/NS 500 MG/100 ML 500 MG/100 ML BAG IV SCH (09:00)
--- NOTE | 2021-06-03 09:02 | Consultation ---
History of Present Illness Consult date: 06/03/21 Reason for consult: abdominal pain - History of present illness History of present illness: 65 year old female with a one week hx of epigastric pain with nausea and vomiting. She says she has a several hx of PUD that she has been taking famotidine for. She had a CT scan that showed a difusley dilated stomach with some thickening at the pylorus/ duodenum that could be causing a gastric outlet obstruction. Gallstone were also seen on imaging. Pt says she currently feels better after gastric decompression with NGT. she denies any RUQ pain at this time. Past History Past Medical History: diabetes, hypertension, hyperlipidemia, other (Spontaneous pneumothorax) Past Surgical History: Other (lung surgery. tubal ligation. tonsillectomy. Left Knee Replacement) Social history: smoking, alcohol abuse Family history: other (gastric cancer) Medications and Allergies Allergies Allergy/AdvReac Type Severity Reaction Status Date / Time Penicillins Allergy Unknown Verified 01/09/13 16:25 Home Medications Medication Instructions Recorded Confirmed Last Taken Type HYDROcodone/APAP 5-325 [[place] 1 - 2 each PO Q6HR PRN #20 tablet 01/10/13 Unknown Rx 5/325 mg] Sulfamethoxazole/Trimethoprim 1 each PO BID #14 tablet 01/10/13 Unknown Rx [Bactrim DS] lisinopriL [Zestril TAB] 20 mg PO QDAY #30 tablet 01/10/13 02/25/21 08:00 Rx metFORMIN [Glucophage] 500 mg PO BID #60 tablet 01/10/13 Unknown Rx Ibuprofen [Motrin] 800 mg PO Q8HR PRN #20 tablet 05/26/21 06/03/21 05/29/21 09:00 Rx Metoclopramide [Reglan] 10 mg PO ACHS PRN #30 tablet 05/26/21 06/03/21 05/26/21 09:00 Rx Active Meds: Active Medications Acetaminophen (Acetaminophen 325 Mg Tab) 650 mg PO Q4H PRN PRN Reason: Pain MILD(1-3)/Fever >100.5/SUN Albuterol (Albuterol 2.5 Mg/3 Ml Nebu) 2.5 mg IH Q3HRT PRN PRN Reason: Shortness Of Breath Albuterol/Ipratropium (Ipratropium/Albuterol Sulfate 3 Ml Ampul.Neb) 1 ampul IH Q6HRT [facility] Last Admin: 06/03/21 08:17 Dose: 1 ampul Dextrose (Dextrose 10% *Hypoglycemia) 0 ml IV PRN PRN PRN Reason: Hypoglycemia Famotidine (Famotidine 20 Mg/2 Ml Inj) 10 mg IV BID [facility] Heparin Sodium (Porcine) (Heparin 5,000 Unit/1 Ml Vial) 5,000 unit SUB-Q Q12HR [facility] Hydromorphone HCl (Hydromorphone 1 Mg/1 Ml Inj) 0.5 mg IV Q3H PRN PRN Reason: Pain , Severe (7-10) Sodium Chloride (Nacl 0.9% 1000 Ml) 1,000 mls @ 100 mls/hr IV DIRECT [facility] Last Admin: 06/03/21 06:09 Dose: 100 mls/hr Levofloxacin/Dextrose (Levaquin 750mg/150ml) 750 mg in 150 mls @ 100 mls/hr IV Q48H [facility] Metronidazole (Flagyl 500 Mg/100 Ml) 500 mg in 100 mls @ 100 mls/hr IV Q8H [facility]; Protocol Insulin Human Lispro (Insulin Lispro 100 Unit/Ml) 0 unit SUB-Q Q6HR [facility]; Protocol Last Admin: 06/03/21 07:01 Dose: Not Given Lisinopril (Lisinopril 20 Mg Tab) 20 mg PO QDAY [facility] Metoclopramide HCl (Metoclopramide 10 Mg Tab) 5 mg PO ACHS PRN PRN Reason: Nausea Morphine Sulfate (Morphine 2 Mg/1 Ml Inj) 2 mg IV Q4H PRN PRN Reason: Pain, Moderate (4-6) Last Admin: 06/03/21 06:45 Dose: 2 mg Ondansetron HCl (Ondansetron 4 Mg/2 Ml Inj) 4 mg IV Q8H PRN PRN Reason: Nausea And Vomiting Sodium Chloride (Sodium Chloride 0.9% 10 Ml Flush Syringe) 10 ml IV BID [facility] Sodium Chloride (Sodium Chloride 0.9% 10 Ml Flush Syringe) 10 ml IV PRN PRN PRN Reason: LINE FLUSH Review of Systems All systems: negative - Constitutional poor appetite - Cardiovascular no chest pain - Gastrointestinal abdominal pain, nausea, vomiting, no jaundice Exam Vital Signs Temp Pulse Resp BP Pulse Ox 97.9 F 90 18 127/69 97 06/02/21 21:13 06/02/21 21:13 06/02/21 21:13 06/02/21 21:13 06/02/21 21:13 - General physical appearance Positive: well developed, no distress, no pain, chronically ill - Eyes Positive: PERRL. Negative: icteric - ENT Positive: no hearing loss - Respiratory Positive: normal expansion, normal respiratory effort - Cardiovascular Heart Sounds: Present: S1 & S2 - Extremities Extremities: no ischemia - Abdomen Abdomen: Present: soft, other (NGT with gastric output. 3200 recorded at initial insertion). Absent: tender, distended - Neurologic Neurologic: alert and oriented to time, place and person - Psychiatric Psychiatric: appropriate mood/affect, cooperative Results - Labs 06/02/21 22:59 06/02/21 22:59 Abnormal lab results 06/02/21 06/02/21 06/03/21 Range/Units 22:59 22:59 06:15 WBC 35.9 H (4.5-11.0) K/mm3 MCHC 37 H (30-34) % RDW 13.0 L (13.2-15.2) % Plt Count 446 H (140-440) K/mm3 Seg Neuts % (Manual) 92.0 H (40.0-70.0) % Lymphocytes % (Manual) 6.0 L (13.4-35.0) % Seg Neutrophils # Man 33.0 H (1.8-7.7) K/mm3 Sodium 131 L (137-145) mmol/L Chloride 79.8 L (98-107) mmol/L Carbon Dioxide 35 H (22-30) mmol/L BUN 69 H (7-17) mg/dL Creatinine 2.5 H (0.6-1.2) mg/dL Glucose 233 H (65-100) mg/dL POC Glucose 139 H (70-105) mg/dL Diabetes panel 06/02/21 Range/Units 22:59 Sodium 131 L (137-145) mmol/L Potassium 3.7 (3.6-5.0) mmol/L Chloride 79.8 L (98-107) mmol/L Carbon Dioxide 35 H (22-30) mmol/L BUN 69 H (7-17) mg/dL Creatinine 2.5 H (0.6-1.2) mg/dL Glucose 233 H (65-100) mg/dL Calcium 9.3 (8.4-10.2) mg/dL AST 12 (5-40) units/L ALT 7 (7-56) units/L Alkaline Phosphatase 95 (35-129) units/L Total Protein 6.6 (6.3-8.2) g/dL Albumin 4.2 (3.9-5) g/dL Calcium panel 06/02/21 Range/Units 22:59 Calcium 9.3 (8.4-10.2) mg/dL Albumin 4.2 (3.9-5) g/dL Pituitary panel 06/02/21 Range/Units 22:59 Sodium 131 L (137-145) mmol/L Potassium 3.7 (3.6-5.0) mmol/L Chloride 79.8 L (98-107) mmol/L Carbon Dioxide 35 H (22-30) mmol/L BUN 69 H (7-17) mg/dL Creatinine 2.5 H (0.6-1.2) mg/dL Glucose 233 H (65-100) mg/dL Calcium 9.3 (8.4-10.2) mg/dL Adrenal panel 06/02/21 Range/Units 22:59 Sodium 131 L (137-145) mmol/L Potassium 3.7 (3.6-5.0) mmol/L Chloride 79.8 L (98-107) mmol/L Carbon Dioxide 35 H (22-30) mmol/L BUN 69 H (7-17) mg/dL Creatinine 2.5 H (0.6-1.2) mg/dL Glucose 233 H (65-100) mg/dL Calcium 9.3 (8.4-10.2) mg/dL Total Bilirubin 0.30 (0.1-1.2) mg/dL AST 12 (5-40) units/L ALT 7 (7-56) units/L Alkaline Phosphatase 95 (35-129) units/L Total Protein 6.6 (6.3-8.2) g/dL Albumin 4.2 (3.9-5) g/dL - Imaging CT scan - abdomen: report reviewed, image reviewed CT scan - pelvis: report reviewed, image reviewed Assessment and Plan 65 year old female with abdominal pain and finding c/w gastric outlet o bstruction and cholelithiasis. Pt is afebrile and stable. Patient is scheduled for EGD tomorrow with GI, Dr. Calderon. Pending findings and any potential biopsy results will determine what if any surgical intervention will be required. If biopsy shows malignancy, patient may need to be transferred to facility with surgical oncologist. Other differential could be peptic ulcer disease. Currently gallstones are asymptomatic. If patient does require surgery for her stomach, can address cholecystectomy at that time. Continue NG tube decompression. We will continue to follow.
[2021-06-03] MEDS: HEPARIN 5,000 UNIT/1 ML VIAL SUB-Q SCH ×2 (09:13→21:26)
--- NOTE | 2021-06-03 09:21 | Gastroenterology Consultation ---
History of Present Illness - Reason for Consult Consult date: 06/03/21 Nausea vomiting Requesting physician: DAMARIS COTTO - History of Present Illness There is a pleasant 65-year-old female who presents with abdominal pain nausea vomiting Patient reports having periumbilical abdominal pain. In 1 week. Worsening. Cramping. Associate with nausea and vomiting. Severe. Intermittent. Worse with eating better with nothing. Before this she felt fine. She does report history of peptic ulcer disease she does not recall when She reports she is very tired because she did not sleep last night Obtained/updated/reviewed patient's current medications Past History Past Medical History: diabetes, hypertension, hyperlipidemia, other (Spontaneous pneumothorax) Past Surgical History: Other (lung surgery. tubal ligation. tonsillectomy. Left Knee Replacement) Social history: smoking, alcohol abuse Family history: other (No family history gastric cancer) Medications and Allergies Allergies Allergy/AdvReac Type Severity Reaction Status Date / Time Penicillins Allergy Unknown Verified 01/09/13 16:25 Home Medications Medication Instructions Recorded Confirmed Last Taken Type HYDROcodone/APAP 5-325 [[place] 1 - 2 each PO Q6HR PRN #20 tablet 01/10/13 Unknow n Rx 5/325 mg] Sulfamethoxazole/Trimethoprim 1 each PO BID #14 tablet 01/10/13 Unknown Rx [Bactrim DS] lisinopriL [Zestril TAB] 20 mg PO QDAY #30 tablet 01/10/13 02/25/21 08:00 Rx metFORMIN [Glucophage] 500 mg PO BID #60 tablet 01/10/13 Unknown Rx Ibuprofen [Motrin] 800 mg PO Q8HR PRN #20 tablet 05/26/21 06/03/21 05/29/21 09:00 Rx Metoclopramide [Reglan] 10 mg PO ACHS PRN #30 tablet 05/26/21 06/03/21 05/26/21 09:00 Rx Active Meds: Active Medications Acetaminophen (Acetaminophen 325 Mg Tab) 650 mg PO Q4H PRN PRN Reason: Pain MILD(1-3)/Fever >100.5/SUN Albuterol (Albuterol 2.5 Mg/3 Ml Nebu) 2.5 mg IH Q3HRT PRN PRN Reason: Shortness Of Breath Albuterol/Ipratropium (Ipratropium/Albuterol Sulfate 3 Ml Ampul.Neb) 1 ampul IH Q6HRT [facility] Last Admin: 06/03/21 08:17 Dose: 1 ampul Dextrose (Dextrose 10% *Hypoglycemia) 0 ml IV PRN PRN PRN Reason: Hypoglycemia Famotidine (Famotidine 20 Mg/2 Ml Inj) 10 mg IV BID [facility] Heparin Sodium (Porcine) (Heparin 5,000 Unit/1 Ml Vial) 5,000 unit SUB-Q Q12HR [facility] Hydromorphone HCl (Hydromorphone 1 Mg/1 Ml Inj) 0.5 mg IV Q3H PRN PRN Reason: Pain , Severe (7-10) Sodium Chloride (Nacl 0.9% 1000 Ml) 1,000 mls @ 100 mls/hr IV DIRECT [facility] Last Admin: 06/03/21 06:09 Dose: 100 mls/hr Levofloxacin/Dextrose (Levaquin 750mg/150ml) 750 mg in 150 mls @ 100 mls/hr IV Q48H [facility] Metronidazole (Flagyl 500 Mg/100 Ml) 500 mg in 100 mls @ 100 mls/hr IV Q8H [facility]; Protocol Insulin Human Lispro (Insulin Lispro 100 Unit/Ml) 0 unit SUB-Q Q6HR [facility]; Protocol Last Admin: 06/03/21 07:01 Dose: Not Given Lisinopril (Lisinopril 20 Mg Tab) 20 mg PO QDAY [facility] Metoclopramide HCl (Metoclopramide 10 Mg Tab) 5 mg PO ACHS PRN PRN Reason: Nausea Morphine Sulfate (Morphine 2 Mg/1 Ml Inj) 2 mg IV Q4H PRN PRN Reason: Pain, Moderate (4-6) Last Admin: 06/03/21 06:45 Dose: 2 mg Ondansetron HCl (Ondansetron 4 Mg/2 Ml Inj) 4 mg IV Q8H PRN PRN Reason: Nausea And Vomiting Sodium Chloride (Sodium Chloride 0.9% 10 Ml Flush Syringe) 10 ml IV BID [facility] Sodium Chloride (Sodium Chloride 0.9% 10 Ml Flush Syringe) 10 ml IV PRN PRN PRN Reason: LINE FLUSH Review of Systems - Review of Systems All systems: negative (10 Systems reviewed and negative except as mentioned above in the history of present illness) Exam - Constitutional Vital Signs: Temp Pulse Resp BP Pulse Ox 98.0 F 113 H 18 122/57 96 06/03/21 09:03 06/03/21 08:54 06/03/21 08:54 06/03/21 08:54 06/03/21 08:54 General appearance: other (Lethargic, no acute distress) - EENT Eyes: EOM intact, other (NG tube in place to low intermittent suction) - Neck Neck: supple - Respiratory Respiratory effort: normal - Cardiovascular Rhythm: regular - Gastrointestinal General gastrointestinal: Present: soft, tender, hypoactive bowel sounds - Integumentary Integumentary: Present: dry - Neurologic Neurological: alert and oriented x3 - Psychiatric Psychiatric: appropriate mood/affect - Labs CBC & Chem 7: 06/02/21 22:59 06/02/21 22:59 Lab Results: Laboratory Results - last 24 hr 06/02/21 06/02/21 06/03/21 22:59 22:59 06:15 WBC 35.9 H RBC 3.70 Hgb 11.7 Hct 31.9 MCV 86 MCH 32 MCHC 37 H RDW 13.0 L Plt Count 446 H Add Manual Diff Complete Total Counted 100 Seg Neuts % (Manual) 92.0 H Band Neutrophils % 0 Lymphocytes % (Manual) 6.0 L Reactive Lymphs % (Man) 0 Monocytes % (Manual) 2.0 Eosinophils % (Manual) 0 Basophils % (Manual) 0 Metamyelocytes % 0 Myelocytes % 0 Promyelocytes % 0 Blast Cells % 0 Nucleated RBC % Not Reportable Seg Neutrophils # Man 33.0 H Band Neutrophils # 0.0 Lymphocytes # (Manual) 2.2 Abs React Lymphs (Man) 0.0 Monocytes # (Manual) 0.7 Eosinophils # (Manual) 0.0 Basophils # (Manual) 0.0 Metamyelocytes # 0.0 Myelocytes # 0.0 Promyelocytes # 0.0 Blast Cells # 0.0 WBC Morphology Not Reportable Hypersegmented Neuts Not Reportable Hyposegmented Neuts Not Reportable Hypogranular Neuts Not Reportable Smudge Cells Not Reportable Toxic Granulation Not Reportable Toxic Vacuolation Not Reportable Dohle Bodies Not Reportable Pelger-Huet Anomaly Not Reportable Chelita Rods Not Reportable Platelet Estimate Consistent w auto Clumped Platelets Not Reportable Plt Clumps, EDTA Not Reportable Large Platelets Not Reportable Giant Platelets Not Reportable Platelet Satelliting Not Reportable Plt Morphology Comment Not Reportable RBC Morphology Normal Dimorphic RBCs Not Reportable Polychromasia Not Reportable Hypochromasia Not Reportable Poikilocytosis Not Reportable Anisocytosis Not Reportable Microcytosis Not Reportable Macrocytosis Not Reportable Spherocytes Not Reportable Pappenheimer Bodies Not Reportable Sickle Cells Not Reportable Target Cells Not Reportable Tear Drop Cells Not Reportable Ovalocytes Not Reportable Helmet Cells Not Reportable Chavarria-[place] Bodies Not Reportable [place] Rings Not Reportable Chad Cells Not Reportable Bite Cells Not Reportable Crenated Cell Not Reportable Elliptocytes Not Reportable Acanthocytes (Spur) Not Reportable Rouleaux Not Reportable Hemoglobin C Crystals Not Reportable Schistocytes Not Reportable Malaria parasites Not Reportable Rene Bodies Not Reportable Hem Pathologist Commnt No Sodium 131 L Potassium 3.7 Chloride 79.8 L Carbon Dioxide 35 H Anion Gap 20 BUN 69 H Creatinine 2.5 H Estimated GFR 19 BUN/Creatinine Ratio 28 Glucose 233 H POC Glucose 139 H Calcium 9.3 Total Bilirubin 0.30 Direct Bilirubin < 0.2 Indirect Bilirubin 0.1 AST 12 ALT 7 Alkaline Phosphatase 95 Total Protein 6.6 Albumin 4.2 Albumin/Globulin Ratio 1.8 Assessment and Plan Given patient's symptoms and CT scan findings concerning for gastric outlet obstruction. Differential diagnosis for underlying cause includes peptic ulcer disease, malignancy, etc. Patient would benefit from EGD for further e valuation. I spoke with anesthesia no availability for today will tentatively plan on EGD tomorrow morning In the meantime please keep patient with NG tube to low intermittent suction and IV twice daily PPI - Patient Problems (1) Acute abdominal pain Current Visit: Yes Status: Acute (2) Acute nausea with nonbilious vomiting Current Visit: Yes Status: Acute (3) Duodenitis Current Visit: Yes Status: Acute (4) Gastric outlet obstruction Current Visit: Yes Status: Acute (5) Leukocytosis Current Visit: Yes Status: Acute (6) Acute epigastric pain Current Visit: No Status: Acute (7) Dehydration Current Visit: No Status: Acute
[2021-06-03] MEDS ORDERED: LISINOPRIL 20 MG TAB PO SCH (10:00)
[2021-06-03] MEDS ORDERED: FAMOTIDINE 20 MG/2 ML INJ IV SCH (10:00)
[2021-06-03] MEDS: PANTOPRAZOLE 40 MG INJ IV SCH ×2 (10:43→21:25)
[2021-06-04] MEDS: INSULIN LISPRO 100 UNIT/ML SUB-Q SCH ×4 (00:09→17:21)
[2021-06-04 05:45] LABS: Basophils # (Auto) 0.1 K/mm3 (0.0-0.1); Basophils % (Auto) 0.4 % (0.0-1.8); Eosinophils # (Auto) 0.1 K/mm3 (0.0-0.4); Eosinophils % (Auto) 0.8 % (0.0-4.3); Hematocrit 24.2 % (30.3-42.9); Lymphocytes # (Auto) 2.2 K/mm3 (1.2-5.4); Lymphocytes % (Auto) 13.8 % (13.4-35.0); Mean Corpuscular HGB Conc 33 % (30-34); Mean Corpuscular Volume 89 fl (79-97); Platelet Count 341 K/mm3 (140-440); Red Blood Count 2.72 M/mm3 (3.65-5.03)
[2021-06-04 05:51] LABS: Calcium 8.7 mg/dL (8.4-10.2)
[2021-06-04] MEDS ORDERED: WATER FOR IRRIG STERILE 1,000 ML BOTTLE ONE (07:21)
[2021-06-04] MEDS ORDERED: WATER FOR IRRIG STERILE 250 ML BOTTLE IR ONE (07:21)
--- NOTE | 2021-06-04 07:45 | Anesthesia Consultation ---
Anesthesia Consult and Med Hx Date of service: 06/04/21 - Airway Anesthetic Teeth Evaluation: Dentures (upper), Edentulous ROM Head & Neck: Adequate Mental/Hyoid Distance: Adequate Mallampati Class: Class II Intubation Access Assessment: Probably Good - Pre-Operative Health Status ASA Pre-Surgery Classification: ASA3 Proposed Anesthetic Plan: MAC - Pulmonary Hx Smoking: Yes (smoker 1/2 pack/day x 45 years) Hx Asthma: No COPD: No Hx Pneumonia: No Hx Sleep Apnea: No - Cardiovascular System Hx Hypertension: Yes - Gastrointestinal Hx Ulcer: Yes Hx Gastroesophageal Reflux Disease: Yes - Endocrine Hx End Stage Renal Disease: No Hx Non-Insulin Dependent Diabetes: Yes - Hematic Hx Anemia: No Hx Sickle Cell Disease: No - Other Systems Hx Alcohol Use: Yes Hx Cancer: No
--- NOTE | 2021-06-04 07:45 | Anesthesia Day of Surgery ---
Anesthesia Day of Surgery - Day of Surgery Patient Examined: Yes Patient H&P Reviewed: Yes Patient is NPO: Yes
[2021-06-04] MEDS ORDERED: propofoL 200 MG/20 ML VIAL IV ONE (07:46)
[2021-06-04] MEDS ORDERED: LIDOCAINE MPF (2%) 20 MG/1 ML VIAL 5 ML ONE (07:57)
--- NOTE | 2021-06-04 09:43 | Post Anesthesia Evaluation ---
- Post Anesthesia Evaluation Patient Participated: Yes Airway Patent: Yes Stable Respiratory Function: Yes Nausea/Vomiting: No Temp > 96.8F: Yes Pain Manageable: Yes Adequeate Hydration: Yes Anesthesia Complications: No
[2021-06-04] MEDS: IPRATROPIUM/ALBUTEROL SULFATE 3 ML AMPUL.NEB IH SCH ×6 (09:44→21:13)
[2021-06-04] MEDS ORDERED: ALBUTEROL 2.5 MG/3 ML NEBU IH PRN (09:53)
--- NOTE | 2021-06-04 11:49 | Operative Report ---
Operative Report Operative Report: Date of service 06/04/21 SURGEON: Mihir Calderon MD EGD with biopsy REPORT PREOPERATIVE DIAGNOSIS and POSTOPERATIVE DIAGNOSIS: N/V/anemia ESTIMATED BLOOD LOSS: minimal DESCRIPTION OF PROCEDURE: A high-resolution EGD scope was passed through the oropharynx, esophagus, stomach, and second portion of duodenum. The scope was carefully withdrawn. Retroflexion was performed in the stomach. At the end of the procedure, the scope was cleaned using normal technique. Vital signs monitored continuously throughout. SEDATION: Provided by Anesthesiology Services. COMPLICATIONS: None. FINDINGS: Normal second portion of the duodenum Large cratered ulcer in the duodenal bulb causing deformity of the pyloric noel nnel and functional gastric outlet obstruction. Biopsies obtained from the edge of the ulcer. Mild to moderate gastritis of the antrum and body with erythema. Biopsies were taken to rule out H. Pylori infection. A total of 5 biopsies were taken, 2 from the antrum, 1 from the incisura, 2 from the body. LA grade D reflux esophagitis seen throughout the distal 15 cm of the esophagus GE junction located at approximately 40 cm from the esophagus RECOMMENDATIONS: Twice daily IV PPI Carafate slurry three times daily Clear liquid diet, advance gradually as tolerated Once patient can tolerate puree diet can discharge with above meds with outpatient followup Please avoid all NSAIDs
[2021-06-04] MEDS ORDERED: SUCRALFATE 1 GM/10 ML ORAL LIQD PO SCH (12:00)
--- NOTE | 2021-06-04 13:18 | Progress Note ---
Assessment and Plan Assessment and plan: History of present illness: 65-year-old female with history of hypertension and diabetes was brought to the ER complaining of right upper quadrant abdominal pain and epigastric pain for the last 7 days. Patient was seen in the emergency room on May 26 and was told that she has issues with her gallbladder and advised to follow-up with primary care physician for further management and refill. Patient stated that her symptoms getting worse since then. She is complaining of chills but no fever. She also reported nausea and vomiting. Patient denied any chest pain or wilda rtness of breath. Patient admitted for gastric outlet obstruction due to duodenitis. Will go to med/surg floor. Hospital course: 06/03/2021: D/w surgery and GI. Plan for EGD tomorrow by GI. Continue NPO and NG set to LIS. D/c antibiotics. 06/04/2021: S/p EGD. EGD demonstrates large crater ulcer in duodenal bulb. Will continue to follow along for symptom resolution. GI recommends high dose ppi and clear liquid diet at this time. Assessment and Plan: # Gastric pylorus ulcer Current Visit: Yes Status: Acute Plan to address problem: CT abdomen and pelvis showed evidence of gastric outlet obstruction most likely secondary to duodenitis. EGD: large crater ulcer in duodenal bulb ( please refer to op report) causing functional obstruction. high dose PPI bid CLD carafate. avoid nsaid or anticoagulants Will follow biopsy report to check for h pylori. GI consultation General Surgery Consultation #Esophagitis LA grade D reflux esophagitis seen on egd high dose PPI for now CLD, advance grad as tolerated avoid nsaid or anticoagulants # SIRS POA Current Visit: Yes Status: Acute Plan to address problem: WBC: 35.9K. Likely reactive from ulcer. now downtrending d/c Levaquin 750 mg IV daily. Flagyl 500 IV q8hr. blood culture/urine culture ordered on admission Trend Fever/wbc curve # OTILIA (acute kidney injury) due to vasomotor nephropathy Current Visit: Yes Status: Acute Plan to address problem: Likely in the setting of dehydration Admission Cr: 2.5, Baseline 1.2 based on prior admission this year. IVF at 100 cc/hr Avoid nephrotoxic agents/Renally dose medication. Follow up repeat BMP, if renal fx worsening will consult nephrology # Hypertension Current Visit: Yes Status: Acute Plan to address problem: Hydralazine 10 mg IV every 6 hours as needed. We continue the home medication # Acute nausea with nonbilious vomiting Current Visit: Yes Status: Acute Plan to address problem: NPO. NG tube suction. Normal saline at the rate of 100 cc/h. Pepcid 20 mg IV every 12 hours. Zofran 4 mg IV every 8 hours as needed # Type 2 Diabetes with Hyperglycemia Current Visit: No Status: Acute Plan to address problem: Humalog sliding scale moderate dose coverage Accu-Chek every 6 hours. Can add long acting insulin once diet can be resumed Diabetic education #DVT prophylaxis Current Visit: Yes Status: Acute Plan to address problem: Heparin 5000 units subcu every 8 hours for DVT prophylaxis. Pepcid 20 mg IV every 12 hours for GI prophylaxis. Patient is a full code #Advance care planning Disease education conducted, care plan discussed, diagnoses discussed, prognosis discussed, patient is full code, patient acknowledges understanding and agree with care plan, +30 minutes. History Interval history: More alert post EGD. States that she is hungry. No complaints otherwise. Grand daughter was at beside, up dated on care. Per granddaughter, patient had diagnosis of ulcer before and was started on omeprazole with limited success. Prior to admission patient was having black tar stools. Hospitalist Physical - Physical exam Narrative exam: Physical Exam: VITAL SIGNS: Reviewed. GENERAL: The patient appears normally developed, Vital signs as documented. mild distress HEAD: No signs of head trauma. EYES: Pupils are equal. Extraocular motions intact. EARS: Hearing grossly intact. NOSE: NG in place. MOUTH: Oropharynx is normal. NECK: No adenopathy, no JVD. CHEST: Chest with clear breath sounds bilaterally. No wheezes, rales, or rhonchi. CARDIAC: Regular rate and rhythm. S1 and S2, without murmurs, gallops, or rubs. VASCULAR: No Edema. Peripheral pulses normal and equal in all extremities. ABDOMEN: Tender abdomen. No rebound or guarding, and no masses palpated. Bowel Sounds normal. MUSCULOSKELETAL: Good range of motion of all major joints. Extremities without clubbing, cyanosis or edema. NEUROLOGIC EXAM: Alert and oriented x 4. no focal sensory or strength deficits. PSYCHIATRIC: Mood normal. SKIN: detail exam as documented in skin assessment - Constitutional Vitals: Temp Pulse Resp BP Pulse Ox 97.9 F 93 H 20 137/50 96 06/04/21 07:59 06/04/21 09:46 06/04/21 09:46 06/04/21 08:19 06/04/21 09:52 General appearance: Present: mild distress Results - Labs CBC & Chem 7: 06/04/21 04:50 06/04/21 04:50 Labs: Laboratory Last Values WBC 16.1 K/mm3 (4.5-11.0) H 06/04/21 04:50 RBC 2.72 M/mm3 (3.65-5.03) L 06/04/21 04:50 Hgb 8.0 gm/dl (10.1-14.3) L D 06/04/21 04:50 Hct 24.2 % (30.3-42.9) L D 06/04/21 04:50 MCV 89 fl (79-97) 06/04/21 04:50 MCH 30 pg (28-32) 06/04/21 04:50 MCHC 33 % (30-34) 06/04/21 04:50 RDW 13.0 % (13.2-15.2) L 06/04/21 04:50 Plt Count 341 K/mm3 (140-440) 06/04/21 04:50 Lymph % (Auto) 13.8 % (13.4-35.0) 06/04/21 04:50 Starke % (Auto) 6.0 % (0.0-7.3) 06/04/21 04:50 Eos % (Auto) 0.8 % (0.0-4.3) 06/04/21 04:50 Baso % (Auto) 0.4 % (0.0-1.8) 06/04/21 04:50 Lymph # (Auto) 2.2 K/mm3 (1.2-5.4) 06/04/21 04:50 Starke # (Auto) 1.0 K/mm3 (0.0-0.8) H 06/04/21 04:50 Eos # (Auto) 0.1 K/mm3 (0.0-0.4) 06/04/21 04:50 Baso # (Auto) 0.1 K/mm3 (0.0-0.1) 06/04/21 04:50 Add Manual Diff Complete 06/02/21 22:59 Total Counted 100 06/02/21 22:59 Seg Neutrophils % 79.0 % (40.0-70.0) H 06/04/21 04:50 Seg Neuts % (Manual) 92.0 % (40.0-70.0) H 06/02/21 22:59 Band Neutrophils % 0 % 06/02/21 22:59 Lymphocytes % (Manual) 6.0 % (13.4-35.0) L 06/02/21 22:59 Reactive Lymphs % (Man) 0 % 06/02/21 22:59 Monocytes % (Manual) 2.0 % (0.0-7.3) 06/02/21 22:59 Eosinophils % (Manual) 0 % (0.0-4.3) 06/02/21 22:59 Basophils % (Manual) 0 % (0.0-1.8) 06/02/21 22:59 Metamyelocytes % 0 % 06/02/21 22:59 Myelocytes % 0 % 06/02/21 22:59 Promyelocytes % 0 % 06/02/21 22:59 Blast Cells % 0 % 06/02/21 22:59 Nucleated RBC % Not Reportable 06/02/21 22:59 Seg Neutrophils # 12.7 K/mm3 (1.8-7.7) H 06/04/21 04:50 Seg Neutrophils # Man 33.0 K/mm3 (1.8-7.7) H 06/02/21 22:59 Band Neutrophils # 0.0 K/mm3 06/02/21 22:59 Lymphocytes # (Manual) 2.2 K/mm3 (1.2-5.4) 06/02/21 22:59 Abs React Lymphs (Man) 0.0 K/mm3 06/02/21 22:59 Monocytes # (Manual) 0.7 K/mm3 (0.0-0.8) 06/02/21 22:59 Eosinophils # (Manual) 0.0 K/mm3 (0.0-0.4) 06/02/21 22:59 Basophils # (Manual) 0.0 K/mm3 (0.0-0.1) 06/02/21 22:59 Metamyelocytes # 0.0 K/mm3 06/02/21 22:59 Myelocytes # 0.0 K/mm3 06/02/21 22:59 Promyelocytes # 0.0 K/mm3 06/02/21 22:59 Blast Cells # 0.0 K/mm3 06/02/21 22:59 WBC Morphology Not Reportable 06/02/21 22:59 Hypersegmented Neuts Not Reportable 06/02/21 22:59 Hyposegmented Neuts Not Reportable 06/02/21 22:59 Hypogranular Neuts Not Reportable 06/02/21 22:59 Smudge Cells Not Reportable 06/02/21 22:59 Toxic Granulation Not Reportable 06/02/21 22:59 Toxic Vacuolation Not Reportable 06/02/21 22:59 Dohle Bodies Not Reportable 06/02/21 22:59 Pelger-Huet Anomaly Not Reportable 06/02/21 22:59 Chelita Rods Not Reportable 06/02/21 22:59 Platelet Estimate Consistent w auto 06/02/21 22:59 Clumped Platelets Not Reportable 06/02/21 22:59 Plt Clumps, EDTA Not Reportable 06/02/21 22:59 Large Platelets Not Reportable 06/02/21 22:59 Giant Platelets Not Reportable 06/02/21 22:59 Platelet Satelliting Not Reportable 06/02/21 22:59 Plt Morphology Comment Not Reportable 06/02/21 22:59 RBC Morphology Normal 06/02/21 22:59 Dimorphic RBCs Not Reportable 06/02/21 22:59 Polychromasia Not Reportable 06/02/21 22:59 Hypochromasia Not Reportable 06/02/21 22:59 Poikilocytosis Not Reportable 06/02/21 22:59 Anisocytosis Not Reportable 06/02/21 22:59 Microcytosis Not Reportable 06/02/21 22:59 Macrocytosis Not Reportable 06/02/21 22:59 Spherocytes Not Reportable 06/02/21 22:59 Pappenheimer Bodies Not Reportable 06/02/21 22:59 Sickle Cells Not Reportable 06/02/21 22:59 Target Cells Not Reportable 06/02/21 22:59 Tear Drop Cells Not Reportable 06/02/21 22:59 Ovalocytes Not Reportable 06/02/21 22:59 Helmet Cells Not Reportable 03/08/22 22:59 [place] Bodies Not Reportable 06/02/21 22:59 [place]co Rings Not Reportable 06/02/21 22:59 Ira Cells Not Reportable 06/02/21 22:59 Bite Cells Not Reportable 06/02/21 22:59 Crenated Cell Not Reportable 06/02/21 22:59 Elliptocytes Not Reportable 06/02/21 22:59 Acanthocytes (Spur) Not Reportable 06/02/21 22:59 Rouleaux Not Reportable 06/02/21 22:59 Hemoglobin C Crystals Not Reportable 06/02/21 22:59 Schistocytes Not Reportable 06/02/21 22:59 Malaria parasites Not Reportable 06/02/21 22:59 Rene Bodies Not Reportable 06/02/21 22:59 Hem Pathologist Commnt No 06/02/21 22:59 Sodium 135 mmol/L (137-145) L 06/04/21 04:50 Potassium 3.2 mmol/L (3.6-5.0) L 06/04/21 04:50 Chloride 88.9 mmol/L (98-107) L 06/04/21 04:50 Carbon Dioxide 33 mmol/L (22-30) H 06/04/21 04:50 Anion Gap 16 mmol/L 06/04/21 04:50 BUN 85 mg/dL (7-17) H 06/04/21 04:50 Creatinine 3.0 mg/dL (0.6-1.2) H 06/04/21 04:50 Estimated GFR 16 ml/min 06/04/21 04:50 BUN/Creatinine Ratio 28 % 06/04/21 04:50 Glucose 111 mg/dL (65-100) H 06/04/21 04:50 POC Glucose 95 mg/dL (70-105) 06/04/21 10:52 Calcium 8.7 mg/dL (8.4-10.2) 06/04/21 04:50 Total Bilirubin 0.30 mg/dL (0.1-1.2) 06/02/21 22:59 Direct Bilirubin < 0.2 mg/dL (0-0.2) 06/02/21 22:59 Indirect Bilirubin 0.1 mg/dL 06/02/21 22:59 AST 12 units/L (5-40) 06/02/21 22:59 ALT 7 units/L (7-56) 06/02/21 22:59 Alkaline Phosphatase 95 units/L (35-129) 06/02/21 22:59 Total Protein 6.6 g/dL (6.3-8.2) 06/02/21 22:59 Albumin 4.2 g/dL (3.9-5) 06/02/21 22:59 Albumin/Globulin Ratio 1.8 % 06/02/21 22:59 Microbiology: Microbiology 06/03/21 00:16 Peripheral/Venous Blood Culture - Preliminary NO GROWTH AFTER 24 HOURS 06/03/21 00:16 Peripheral/Venous Blood Culture - Preliminary NO GROWTH AFTER 24 HOURS Rogers/IV: Voiding Method Bedside Commode Active Medications - Current Medications Current Medications: Generic Name Dose Route Start Last Admin Trade Name Freq PRN Reason Stop Dose Admin Acetaminophen 650 mg 06/03/21 05:00 Acetaminophen 325 Mg Tab PO Q4H PRN Pain MILD(1-3)/Fever >100.5/SUN Albuterol 2.5 mg 06/04/21 09:53 Albuterol 2.5 Mg/3 Ml Nebu IH Q3HRT PRN Shortness Of Breath Albuterol/Ipratropium 1 ampul 06/04/21 14:00 Ipratropium/Albuterol Sulfate 3 Ml Ampul.Neb IH TIDRT JELLY Dextrose 0 ml 06/03/21 04:53 Dextrose 10% *Hypoglycemia IV PRN PRN Hypoglycemia Heparin Sodium (Porcine) 5,000 unit 06/03/21 10:00 06/03/21 21:26 Heparin 5,000 Unit/1 Ml Vial SUB-Q 5,000 unit Q12HR JELLY Administration Hydromorphone HCl 0.5 mg 06/03/21 05:00 Hydromorphone 1 Mg/1 Ml Inj IV Q3H PRN Pain , Severe (7-10) Sodium Chloride 1,000 mls @ 100 mls/hr 06/03/21 05:00 06/03/21 20:18 Nacl 0.9% 1000 Ml IV 100 mls/hr DIRECT JELLY Administration Insulin Human Lispro 0 unit 06/03/21 06:00 06/04/21 05:46 Insulin Lispro 100 Unit/Ml SUB-Q Not Given Q6HR [facility] Protocol Labetalol HCl 10 mg 06/03/21 13:30 Labetalol 20 Mg/4 Ml Inj IV Q6HR PRN sbp > 160 Morphine Sulfate 2 mg 06/03/21 04:23 06/03/21 12:35 Morphine 2 Mg/1 Ml Inj IV 2 mg Q4H PRN Administration Pain, Moderate (4-6) Ondansetron HCl 4 mg 06/03/21 04:23 Ondansetron 4 Mg/2 Ml Inj IV Q8H PRN Nausea And Vomiting Pantoprazole Sodium 40 mg 06/03/21 10:00 06/03/21 21:25 Pantoprazole 40 Mg Inj IV 40 mg BID JELLY Administration Sodium Chloride 10 ml 06/03/21 10:00 06/03/21 21:26 Sodium Chloride 0.9% 10 Ml Flush Syringe IV 10 ml BID JELLY Administration Sodium Chloride 10 ml 06/03/21 04:23 Sodium Chloride 0.9% 10 Ml Flush Syringe IV PRN PRN LINE FLUSH Sucralfate 1 gm 06/04/21 16:30 Sucralfate 1 Gm/10 Ml Oral Liqd PO ACHS [facility] Nutrition/Malnutrition Assess - Dietary Evaluation Nutrition/Malnutrition Findings: Nutrition Notes Start: 06/03/21 14:26 Freq: Status: Active Protocol: Document 06/03/21 14:26 SARA (Rec: 06/03/21 14:38 SARA [id number]) Nutrition Notes Need for Assessment generated from: MD Order,Education Initial or Follow up Brief Note Current Diagnosis Acute Kidney Injury,Diabetes, Hypertension,Hyperlipidemia Other Pertinent Diagnosis Gastric Obstruction/Duodenitis , SIRS, Leukocytosis. Current Diet NPO (since 06/03 04:25). 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 Weight Status Overweight Subjective/Other Information RD consult for Nutrition Education. Pt currently on NPO. Pt still on critical condition , not a candidate for Nutrition Education at the time, will assess feasibility on F/U. Percent of energy/protein needs met: Pt currently on NPO. Is patient on ventilator? No Is Patient Ambulatory and/or Out of Bed Yes REE-([facility]. Jeor-ambulatory/OOB) [ [id number] [id number]] Calculation Used for Recommendations Suni Aguayo Additional Notes Protein: 0.8-1.2 g/Kg ABW; 66- 98 g/day. Fluids: 1 ml/Kcal, or as per MD. Nutrition Intervention Follow-Up By: 06/05/21 Additional Comments Nutrition education will be provided on F/U, if feasible. When pertinent, start monitoring food tolerance, %PO intake of meals, and BM.
[2021-06-04] MEDS: PANTOPRAZOLE 40 MG INJ IV SCH ×2 (13:30→21:02)
[2021-06-04] MEDS: HEPARIN 5,000 UNIT/1 ML VIAL SUB-Q SCH ×2 (13:31→21:02)
[2021-06-04] MEDS: SODIUM CHLORIDE 0.9% 1000 ML 1,000 ML IV SCH (13:34)
[2021-06-04] MEDS: SUCRALFATE 1 GM/10 ML ORAL LIQD PO SCH ×2 (17:24→21:02)
[2021-06-05] MEDS: INSULIN LISPRO 100 UNIT/ML SUB-Q SCH ×3 (00:38→12:28)
[2021-06-05] MEDS: IPRATROPIUM/ALBUTEROL SULFATE 3 ML AMPUL.NEB IH SCH ×2 (07:42→13:48)
--- NOTE | 2021-06-05 07:57 | Gastroenterology Progress Note ---
Assessment and Plan Patient clinically improving Now that she can tolerate oral medication switch to pantoprazole 40 mg twice a day. Continue Carafate slurry three times daily Patient improving rapidly therefore can discharge with above meds with outpatient followup Please avoid all NSAIDs GI will sign off - Patient Problems (1) Acute abdominal pain Current Visit: Yes Status: Acute (2) Acute nausea with nonbilious vomiting Current Visit: Yes Status: Acute (3) Duodenitis Current Visit: Yes Status: Acute (4) Gastric outlet obstruction Current Visit: Yes Status: Acute (5) Leukocytosis Current Visit: Yes Status: Acute (6) Acute epigastric pain Current Visit: No Status: Acute (7) Dehydration Current Visit: No Status: Acute Subjective Date of service: 06/05/21 Principal diagnosis: N/V Interval history: Patient reports moderate improvement in symptoms today Still with some nausea but tolerating liquid diet She says she wants to go home EGD 06/04/21 Normal second portion of the duodenum Large cratered ulcer in the duodenal bulb causing deformity of the pyloric channel and functional gastric outlet obstruction. Biopsies obtained from the edge of the ulcer. Mild to moderate gastritis of the antrum and body with erythema. Biopsies were taken to rule out H. Pylori infection. A total of 5 biopsies were taken, 2 from the antrum, 1 from the incisura, 2 from the body. LA grade D reflux esophagitis seen throughout the distal 15 cm of the esophagus GE junction located at approximately 40 cm from the esophagus RECOMMENDATIONS: Twice daily IV PPI Carafate slurry three times daily Clear liquid diet, advance gradually as tolerated Once patient can tolerate puree diet can discharge with above meds with outpatient followup Please avoid all NSAIDs Objective - Constitutional Vitals: Temp Pulse Resp BP Pulse Ox 98.1 F 100 H 18 112/68 93 06/05/21 06:24 06/05/21 06:24 06/05/21 06:24 06/05/21 06:24 06/05/21 06:24 General appearance: no acute distress - EENT Eyes: EOM intact ENT: hearing intact - Neck Neck: supple - Respiratory Respiratory effort: normal - Gastrointestinal General gastrointestinal: Present: soft, tender - Labs CBC & Chem 7: 06/04/21 04:50 06/04/21 04:50 Labs: Laboratory Results - last 24 hr 06/04/21 06/04/21 10:52 16:41 POC Glucose 95 123 H
--- NOTE | 2021-06-05 08:57 | Post Anesthesia Evaluation ---
- Post Anesthesia Evaluation Patient Participated: Yes Airway Patent: Yes Stable Respiratory Function: Yes Nausea/Vomiting: No Temp > 96.8F: No Pain Manageable: Yes Adequeate Hydration: Yes Anesthesia Complications: Yes Patient on Ventilator: No
[2021-06-05] MEDS: PANTOPRAZOLE 40 MG INJ IV SCH (09:52)
[2021-06-05] MEDS: SUCRALFATE 1 GM/10 ML ORAL LIQD PO SCH ×2 (09:53→12:29)
[2021-06-05] MEDS: HEPARIN 5,000 UNIT/1 ML VIAL SUB-Q SCH (09:53)
[2021-06-05] MEDS ORDERED: SODIUM CHLORIDE 0.9% 1000 ML 1,000 ML IV ONE (12:00)
[2021-06-05] MEDS ORDERED: POTASSIUM CHLORIDE ER 20 MEQ TAB PO ONE (12:00)
--- NOTE | 2021-06-05 13:13 | Discharge Summary ---
Providers - Providers Date of Admission: 06/03/21 04:23 Date of discharge: 06/05/21 Attending physician: MIKE MANUEL MD 06/03/21 02:50 Consult to Physician [CONS] Stat Comment: Dr. Robertson spoke with Dr. Alvarez @ [phone] Consulting Provider: NEY ALVAREZ Physician Instructions: Reason For Exam: Gastric outlet obstruction secondary to duodenitis 06/03/21 04:23 Consult to Dietitian/Nutrition [CONS] Routine Physician Instructions: Reason For Exam: Reason for Consult: Diet education Consult to Physician [CONS] Routine Comment: Consulting Provider: SANDRA POE Physician Instructions: Reason For Exam: Gastric outlet obstruction Primary care physician: LUIS CONTRERAS Hospitalization Reason for admission: abdominal pain Condition: Stable Hospital course: History of present illness: 65-year-old female with history of hypertension and diabetes was brought to the ER complaining of right upper quadrant abdominal pain and epigastric pain for the last 7 days. Patient was seen in the emergency room on May 26 and was told that she has issues with her gallbladder and advised to follow-up with primary care physician for further management and refill. Patient stated that her symptoms getting worse since then. She is complaining of chills but no fever. She also reported nausea and vomiting. Patient denied any chest pain or shortness of breath. Patient admitted for gastric outlet obstruction due to duodenitis. Will go to med/surg floor. Hospital course: 06/03/2021: D/w surgery and GI. Plan for EGD tomorrow by GI. Continue NPO and NG set to LIS. D/c antibiotics. 06/04/2021: S/p EGD. EGD demonstrates large crater ulcer in duodenal bulb. Will continue to follow along for symptom resolution. GI recommends high dose ppi and clear liquid diet at this time. 06/05/2021: Patient is tolerating a full liquid diet today. Initiated on high- dose PPI and Carafate. Prescriptions were transmitted to her pharmacy. She was advised to follow-up with GI as an outpatient. Her kidney function was also noted to be reduced. Last creatinine was 3.0. Her urine production has maintained. I suspect prerenal etiology and thus hydration was encouraged. She is advised to follow-up outpatient with nephrology. Assessment and Plan: # Gastric pylorus ulcer Current Visit: Yes Status: Acute Plan to address problem: CT abdomen and pelvis showed evidence of gastric outlet obstruction most likely secondary to duodenitis. EGD: large crater ulcer in duodenal bulb ( please refer to op report) causing functional obstruction. high dose PPI bid CLD carafate. avoid nsaid or anticoagulants Will follow biopsy report to check for h pylori. GI consultation General Surgery Consultation #Esophagitis LA grade D reflux esophagitis seen on egd high dose PPI for now CLD, advance grad as tolerated avoid nsaid or anticoagulants # SIRS POA Current Visit: Yes Status: Acute Plan to address problem: WBC: 35.9K. Likely reactive from ulcer. now downtrending d/c Levaquin 750 mg IV daily. Flagyl 500 IV q8hr. blood culture/urine culture ordered on admission Trend Fever/wbc curve # OTILIA (acute kidney injury) due to vasomotor nephropathy Current Visit: Yes Status: Acute Plan to address problem: Likely in the setting of dehydration Admission Cr: 2.5, Baseline 1.2 based on prior admission this year. IVF at 100 cc/hr Avoid nephrotoxic agents/Renally dose medication. Follow up repeat BMP, if renal fx worsening will consult nephrology # Hypertension Current Visit: Yes Status: Acute Plan to address problem: Hydralazine 10 mg IV every 6 hours as needed. We continue the home medication # Acute nausea with nonbilious vomiting Current Visit: Yes Status: Acute Plan to address problem: NPO. NG tube suction. Normal saline at the rate of 100 cc/h. Pepcid 20 mg IV every 12 hours. Zofran 4 mg IV every 8 hours as needed # Type 2 Diabetes with Hyperglycemia Current Visit: No Status: Acute Plan to address problem: Humalog sliding scale moderate dose coverage Accu-Chek every 6 hours. Can add long acting insulin once diet can be resumed Diabetic education #DVT prophylaxis Current Visit: Yes Status: Acute Plan to address problem: Heparin 5000 units subcu every 8 hours for DVT prophylaxis. Pepcid 20 mg IV every 12 hours for GI prophylaxis. Patient is a full code #Advance care planning Disease education conducted, care plan discussed, diagnoses discussed, prognosis discussed, patient is full code, patient acknowledges understanding and agree with care plan, +30 minutes. Disposition: HOME / SELF CARE / HOMELESS Final Discharge Diagnosis (Prints w/discharge instructions): gastric ulcer, functional gastric outlet obstruction. Time spent for discharge: 35 Core Measure Documentation - Palliative Care Palliative Care/ Comfort Measures: Not Applicable - Core Measures Any of the following diagnoses?: none Exam - Physical Exam Narrative exam: Physical Exam: VITAL SIGNS: Reviewed. GENERAL: The patient appears normally developed, Vital signs as documented. mild distress HEAD: No signs of head trauma. EYES: Pupils are equal. Extraocular motions intact. EARS: Hearing grossly intact. NOSE: NG in place. MOUTH: Oropharynx is normal. NECK: No adenopathy, no JVD. CHEST: Chest with clear breath sounds bilaterally. No wheezes, rales, or rhonchi. CARDIAC: Regular rate and rhythm. S1 and S2, without murmurs, gallops, or rubs. VASCULAR: No Edema. Peripheral pulses normal and equal in all extremities. ABDOMEN: Tender abdomen. No rebound or guarding, and no masses palpated. Bowel Sounds normal. MUSCULOSKELETAL: Good range of motion of all major joints. Extremities without clubbing, cyanosis or edema. NEUROLOGIC EXAM: Alert and oriented x 4. no focal sensory or strength deficits. PSYCHIATRIC: Mood normal. SKIN: detail exam as documented in skin assessment - Constitutional Vitals: Temp Pulse Resp BP Pulse Ox 98.1 F 91 H 18 112/68 92 06/05/21 06:24 06/05/21 07:42 06/05/21 07:42 06/05/21 06:24 06/05/21 07:42 Plan Diet: other (full liquid diet, advance as tolerated.) Follow up with: LUIS CONTRERAS MD [Primary Care Provider] - 3-5 Days PAUL PIMENTEL MD [Staff Physician] - 7 Days RONALDO COREY MD [Staff Physician] - 7 Days Prescriptions: Sucralfate [Carafate] 1 gm PO ACHS 30 Days #1 bottle Pantoprazole [Protonix TAB] 40 mg PO BID 30 Days #60 tablet
[2021-06-05 18:17] VITALS: BP 133/51
[2021-06-05 18:26] LABS: Calcium 8.5 mg/dL (8.4-10.2)
[2021-06-05] MEDS ORDERED: PANTOPRAZOLE 40 MG TAB PO SCH (22:00)
== END 2021-06-05 18:30 | disposition home or self-care (01) | DRG 391 ==
LOC: ED 21:02 → 3A 06-03 04:23
PROVIDERS: ADMIT Hospitalist; ATTEND Internal Medicine
PROC: 0D9670Z Drainage of Stomach with Drainage Device, Via Natural or Artificial Opening (ICD-10-PCS; 2021-06-03)
PROC: 0DB68ZX Excision of Stomach, Via Natural or Artificial Opening Endoscopic, Diagnostic (ICD-10-PCS; principal; 2021-06-04)
DX: K29.80 Duodenitis without bleeding (principal); N17.0 Acute kidney failure with tubular necrosis; K31.1 Adult hypertrophic pyloric stenosis; K57.12 Diverticulitis of small intestine without perforation or abscess without bleeding; K80.21 Calculus of gallbladder without cholecystitis with obstruction; R65.10 Systemic inflammatory response syndrome (SIRS) of non-infectious origin without acute organ dysfunction; I10 Essential (primary) hypertension; E78.00 Pure hypercholesterolemia, unspecified; Z98.51 Tubal ligation status; Z96.652 Presence of left artificial knee joint; F17.200 Nicotine dependence, unspecified, uncomplicated; E11.65 Type 2 diabetes mellitus with hyperglycemia; E86.0 Dehydration; K21.00 Gastro-esophageal reflux disease with esophagitis, without bleeding; Z79.899 Other long term (current) drug therapy; Z88.0 Allergy status to penicillin; Z79.84 Long term (current) use of oral hypoglycemic drugs
CPT/HCPCS: 36415; 74176; 80048; 80076; 82962; 85007; 85025; 87040; 88305; 88342; 94640; 94760; G0378; J3490; J7120; J7517; Q0162; Q9967; C9113; J1644; J1815; J1956; J2270; J2405; J2704; J7030

== ENCOUNTER 2021-06-06 22:52 | Emergency (ER) | payer MEDICARE ==
[2021-06-07 05:38] VITALS: BP 171/84
== END 2021-06-07 01:00 | disposition left against medical advice (07) ==
LOC: ED 22:52
DX: R69 Illness, unspecified (principal); Z53.21 Procedure and treatment not carried out due to patient leaving prior to being seen by health care provider